=== PATIENT | male | born 1950 | race African-American/Black ===

== ENCOUNTER 2016-06-19 19:35 | Inpatient (IN) ==
[2016-06-19 21:21] LABS: Basophils % 0.4 % (0.0-0.8); Eosinophils % 0.3 % (0.00-10.9); Hematocrit 33.5 VOL% (42.0-52.0); Hemoglobin 11.4 GM/DL (14.0-18.0); Immature Granulocytes % 0.5 %; Immature Granulocytes Absolute 0.04 #; Lymphocytes # 1.7 10*3/uL (1.4-4.0); Lymphocytes % 21.8 % (21.2-54.2); Mean Corpuscular Hemoglobin 31 PG (27-34); Mean Platelet Volume 10.5 FL (9.6-12.0); Monocytes # 0.9 10*3/uL (0.11-0.8); Neutrophils # 5.1 10*3/uL (1.4-7.4); Platelet Count 299 T/CUMM (130-400); Red Blood Count 3.68 MC/CUMM (3.8-5.5); Red Cell Distribution Width 13.1 % (9.3-17.3); White Blood Count 7.9 T/CUMM (4-12)
[2016-06-19 21:33] LABS: Apearance,Urine CLOUDY (Clear); Bacteria,Urine Moderate /HPF (Few); Bilirubin,Urine Negative (Negative); Blood, Urine Large mg/dL (Negative); Glucose,Urine (UA) Negative (Negative); Ketones,Urine Negative (Negative); Mucus,Urine Occasional /LPF (Occasional); Nitrite,Urine Positive (Negative); Protein,Urine 100 MG/DL; RBC,Urine 193 /HPF (0-4); Urine Color Yellow (Yellow); Urine Specific Gravity 1.008 (1.001-1.035); Urine Urobilinogen < 2.0 EU/DL (0.2-1.0); WBC,Urine 236 /HPF (0-6)
[2016-06-19 21:42] LABS: Alanine Aminotransferase 50 U/L (16-61); Albumin 4.2 G/DL (3.4-5.0); Alkaline Phosphatase 78 U/L (45-117); Aspartate Amino Transferase 31 U/L (0-37); Blood Urea Nitrogen 22 MG/DL (7-18); Calcium 8.9 MG/DL (8.5-10.1); Glucose 107 MG/DL (74-106); Magnesium 2.6 MG/DL (1.8-2.4); Osmolality,Calculated 277.7 MOS/KG (273-304); Potassium 4.2 MMOL/L (3.5-5.1); Sodium 138 MMOL/L (136-145); Total Protein 7.4 G/DL (6.4-8.3); Troponin I Only < 0.015 NG/ML (0.00-0.045)
[2016-06-19] MEDS ORDERED: MORPHINE 2 MG/1 ML SYRINGE IV STA (22:49)
[2016-06-19] MEDS ORDERED: MORPHINE 2 MG/1 ML SYRINGE ONE (22:51)
[2016-06-20] MEDS ORDERED: cefTRIAXone 1,000 MG in SODIUM CHLORIDE 0.9% 100 ML IV STA (00:05)
[2016-06-20] MEDS ORDERED: SODIUM CHLORIDE 0.9% 100 ML IV ONE (00:12)
[2016-06-20] MEDS ORDERED: cefTRIAXone 1,000 MG VIAL ONE (00:12)
--- NOTE | 2016-06-20 00:17 | Emergency Department Note ---
I, Sarahy Johnson, am scribing for, and in the presence of, Xin Davies MD 20:38. IKeke Leanne, MD, personally performed the services described in this documentation, ascribed by Sarahy Johnson in my presence, and it is both accurate and complete . Arrival - Arrival Chief Complaint: Abdominal / Flank Pain Stated Complaint: stomach pain dizzy ED Nursing Triage Note: C/O Generalized abd pain radiating into bilateral flanks. Onset 2-3 weeks ago. Pt reports that he has been to [facility] and was diagnosed with UTI- reports taking antibiotics without any relief. Denies fever. Denies vomiting/diarrhea. +nausea. Last BM Yesterday Mode of Arrival: Ambulatory Limitations: No Limitations Source: Patient, Family Time Seen by Provider: 06/19/16 20:29 - History of Present Illness HPI Narrative: Pt is a 65 y/o male that came to the ED with c/o RUQ pain that has been constant for 2-3 months. Pt has associated sxs of pain radiating to his right flank and back, loss of appetite, weight loss, weakness, sleeping more than normal, and constipation. Pt reports his last BM was this morning due to taking a laxative last night for the constipation. Pt states eating and trying to sleep make sxs worse. Family reports pt has lost a lot of weight in the past few months. Pt states he has been to [facility] for sxs and had a CT scan. Pt reports [facility] said he had a "bad UTI that spread." Pt is in remission for prostate CA that he received seed radiation. Pt reports the radiation damaged his bladder and he now has to do self caths daily. Pt admits he does still have his gallbladder. Pt denies being a current smoker but states he did smoke a pack a day for 8 years. No other complaints/pain in ED. Onset (ago): month(s) Consistency: constant Severity: moderate Severity scale (1-10): 5 Quality: sharp Allergies/Adverse Reactions: Allergies Allergy/AdvReac Type Severity Reaction Status Date / Time No Known Allergies Allergy Verified 01/23/15 14:52 Home Medications: Home Medications Medication Instructions Recorded Confirmed Type Ferrous Sulfate [Ferrous Sulfate 325 mg PO DAILY 01/23/15 06/19/16 History Cap] Pantoprazole Tab [Protonix Tab] 40 mg PO DAILY 01/23/15 06/19/16 History Simvastatin [Zocor] 20 mg PO QPM 01/23/15 06/19/16 History Tamsulosin [Flomax] 0.4 mg PO QPM 01/23/15 06/19/16 History Zolpidem Tartrate [Ambien] 10 mg PO BEDTIME 01/23/15 06/19/16 History hydroCHLOROthiazide 12.5 mg PO DAILY 01/23/15 06/19/16 History [Hydrochlorothiazide] Albuterol Inhaler [Proventil 1 puff INH BID PRN 06/19/16 06/19/16 History Inhaler] Ascorbic Acid 1,000 mg PO BID 06/19/16 06/19/16 History Aspirin EC Tab 81 mg PO DAILY 06/19/16 06/19/16 History HYDROcodone/ACETAMIN 5-325 [[place] 1 tablet PO Q4H PRN 06/19/16 06/19/16 History 5-325] Melatonin 3 mg PO BEDTIME 06/19/16 06/19/16 History Metoprolol Succinate 50 mg PO DAILY 06/19/16 06/19/16 History Phenazopyridine HCl [Azo Urinary 97.5 mg PO DAILY PRN 06/19/16 06/19/16 History Pain Relief] Sildenafil Citrate [Viagra] 100 mg PO DAILY PRN 06/19/16 06/19/16 History Review of System - Review of System 12 point system: reviewed and no additional remarkable complaints except as stated - Review of System Constitutional: Present: weakness, weight loss, other (loss of appetite; sleeping more than normal). Absent: chills, fever Respiratory: Absent: cough Cardiovascular: Absent: chest pain Gastrointestinal: Present: abdominal pain (RUQ abdominal pain), constipation. Absent: nausea, vomiting, diarrhea Musculoskeletal: Present: back pain (abdominal pain radiates to the right flank and back). Absent: arm pain Skin: Absent: rash Neurological: Absent: headache Psychiatric: Absent: anxiety Medical,Surgical,& Family Hx - Medical History Cardio: History of: Hypertension Neurology: History of: TIA No history of: Seizures Gastrointestinal: History of: GI Problems (anemia) - Surgical History Abdominal Surgeries: Surgical HX of: Colonoscopy - Social History Smoking Status: Never smoker Frequency of Alcohol Use: None Type of Drug Use: None Exam Vital Signs: Vital Signs Temperature 97.1 F L 06/19/16 19:48 Pulse Rate 76 06/19/16 23:10 Respiratory Rate 19 06/19/16 23:10 Blood Pressure 158/73 06/19/16 23:10 O2 Sat by Pulse Oximetry 100 06/19/16 23:10 - General General appearance: alert, in no apparent distress, other (looks thin) - Head Head exam: Present: atraumatic, normocephalic - Eye Eye exam: Present: PERRL, EOMI - ENT ENT exam: Present: mucous membranes moist. Absent: mucous membranes dry - Neck Neck exam: Present: full ROM. Absent: tenderness - Chest Chest inspection: Present: symmetric chest wall rise. Absent: tenderness - Respiratory Respiratory exam: Present: normal lung sounds bilaterally. Absent: respiratory distress - Cardiovascular Cardiovascular exam: Present: regular rate, normal rhythm, normal heart sounds - Abdominal Exam Abdominal exam: Present: soft, tenderness (RUQ tenderness), normal bowel sounds - Extremities Exam Extremities exam: Present: full ROM. Absent: tenderness - Back Exam Back exam: Present: full ROM. Absent: tenderness - Neurological Exam Neurological exam: Present: alert, oriented X3, CN II-XII intact. Absent: motor sensory deficit - Psychiatric Psychiatric exam: Present: normal affect, normal mood - Skin Skin exam: Present: warm, dry Results - Labs CBC & BMP: 06/19/16 20:19 06/19/16 20:19 Lab Results: I have reviewed the patients labs Labs: Laboratory Tests 06/19/16 06/19/16 20:19 20:19 RBC 3.68 L Hgb 11.4 L Hct 33.5 L Mcc[place] # (Auto) 0.9 H Urine Color Yellow Urine Appearance Cloudy Urine pH 6.0 Ur Specific [place] 1.008 Urine Protein 100 Urine Glucose (UA) Negative Urine Ketones Negative Urine Blood Large Urine Nitrate Positive H Urine Bilirubin Negative Urine Urobilinogen < 2.0 H Urine Leukocytes Large H Urine RBC 193 Urine WBC 236 Urine WBC Clumps Moderate Urine Bacteria Moderate Urine Mucus Occasional Laboratory Tests 06/19/16 20:19 Anion Gap 16.2 H BUN 22 H Creatinine 2.90 H Glucose 107 H Magnesium 2.6 H - EKG EKG results: interpreted by ERMSilvana, WNL, sinus rhythm, normal axis, normal ST/T - Diagnostic Findings Procedure: CT Abdomen and Pelvis: report reviewed by me (Moderate bilateral hydronephrosis of unknown etiology, with ureteral jets demonstrated bilaterally. Small avascular hyperechoic foci within the liver and spleen may be hemangiomas, but are incompletely evaluated sonographically. ) Disposition Clinical Impression: Urinary obstruction, Bladder mass, Urinary tract infection, History of prostate cancer, Liver metastases Case discussed with: patient Condition: Guarded Additional Instructions: spoke with hosptialist for admission.
[2016-06-20] MEDS ORDERED: ZALEPLON 5 MG CAPSULE PO PRN (00:52)
[2016-06-20] MEDS ORDERED: ONDANSETRON 4 MG/2 ML VIAL IV PRN (00:52)
[2016-06-20] MEDS ORDERED: ALBUTEROL 2.5 MG/3 ML NEB RESP TX PRN (00:58)
[2016-06-20] MEDS ORDERED: PHENAZOPYRIDINE 95 MG TABLET PO PRN (00:58)
--- NOTE | 2016-06-20 01:04 | Hospitalist History & Physical ---
Assessment and Plan (1) Urinary obstruction Status: Acute Current Visit: Yes (2) Bladder mass Status: Acute Current Visit: Yes (3) Urinary tract infection Status: Acute Current Visit: Yes (4) History of prostate cancer Status: Acute Current Visit: Yes (5) Liver metastases Status: Acute Assessment and plan: Our plan for this patient will be admission to our service. I am going to consult urology for their input. In addition I am going to obtain imaging studies and neurological evaluations from the [facility]. I do not think any of this is new think this is old. Patient is a very poor historian and is very difficult to get in information out of him. His and daughter are not much help either. Patient does self cath 3 times daily. Current Visit: Yes History of Present Illness Chief complaint: Abdominal pain, weakness History of present illness: Mr. Figueredo is a 65 year old male with past medical history significant for prostate cancer hypertension and BPH whose been feeling poorly lately. Patient reports that he goes to the [facility] for his healthcare. He says that he has been told that his prostate cancer had resolved and that his PSA was low male. Patient is a very poor historian so I do not have a full picture about what is going on with this patient. He comes in to me reports of lower abdominal pain no appetite cannot sleep generalized weakness. He also says that he gets dizzy upon standing. He says he stays cold all the time. And he says I just do not feel good. He comes into our hospital for further evaluation. The ER physician ordered a CT scan. It displayed multiple metallic prostate seeds. There was pelvic postop changes with the ventral pelvic wall cold tissue festers. There is a poorly defined 4 cm left. He central pelvic mass continuous with the prostate cancer and urinary bladder base. They labeled it is malignant being probable. There was a 37 mm calcification at the ureter ago vesicle junction which may be an obstructing stone. They do say that neoplastic invasion cannot be excluded. There are multiple poorly defined hypodense hepatic masses of various sizes strongly suggestive of liver metastasis. These are the findings documented on segun's CT scan. In the paperwork that they brought from the [facility] which was not complete I did find a CT scan done in February that had similar findings. It made reference to 2 masses in the liver and recommended additional imaging be performed. I do not know if additional imaging was performed in the patient and his family cannot tell me. They did tell me they were told do not let anybody biopsy of the masses in the liver. They deny that they have been told that he has a current cancer. I was consulted to admit the patient to the emergency room. Home Medications Medication Instructions Recorded Confirmed Type Ferrous Sulfate [Ferrous Sulfate 325 mg PO DAILY 01/23/15 06/19/16 History Cap] Pantoprazole Tab [Protonix Tab] 40 mg PO DAILY 01/23/15 06/19/16 History Simvastatin [Zocor] 20 mg PO QPM 01/23/15 06/19/16 History Tamsulosin [Flomax] 0.4 mg PO QPM 01/23/15 06/19/16 History Zolpidem Tartrate [Ambien] 10 mg PO BEDTIME 01/23/15 06/19/16 History hydroCHLOROthiazide 12.5 mg PO DAILY 01/23/15 06/19/16 History [Hydrochlorothiazide] Albuterol Inhaler [Proventil 1 puff INH BID PRN 06/19/16 06/19/16 History Inhaler] Ascorbic Acid 1,000 mg PO BID 06/19/16 06/19/16 History Aspirin EC Tab 81 mg PO DAILY 06/19/16 06/19/16 History HYDROcodone/ACETAMIN 5-325 [[place] 1 tablet PO Q4H PRN 06/19/16 06/19/16 History 5-325] Melatonin 3 mg PO BEDTIME 06/19/16 06/19/16 History Metoprolol Succinate 50 mg PO DAILY 06/19/16 06/19/16 History Phenazopyridine HCl [Azo Urinary 97.5 mg PO DAILY PRN 06/19/16 06/19/16 History Pain Relief] Sildenafil Citrate [Viagra] 100 mg PO DAILY PRN 06/19/16 06/19/16 History Allergies Allergy/AdvReac Type Severity Reaction Status Date / Time No Known Allergies Allergy Verified 01/23/15 14:52 Medical,Surgical,& Family Hx - Medical History Cardio: History of: Hypertension Neurology: History of: TIA No history of: Seizures Gastrointestinal: History of: GI Problems (anemia) - Surgical History Abdominal Surgeries: Surgical HX of: Colonoscopy Reproductive Surgeries: Surgical HX of;: Prostate Surgery - Family History Family History: Reports;: Family Cancer - Social History Smoking Status: Never smoker Frequency of Alcohol Use: None Type of Drug Use: None 12 point system: reviewed and no additional remarkable complaints except as stated Exam - Constitutional General appearance: normal weight - Head Head exam: Present: normal inspection - Eye Eye exam: Present: EOMI Pupils: Present: DARIAN - ENT ENT exam: Present: normal exam - Neck Neck exam: Present: normal inspection - Respiratory Respiratory exam: Present: clear to auscultation bilaterally - Cardiovascular Cardiovascular exam: Present: regular rate and rhythm - GI/Abdominal GI/Abdominal exam: Present: normal bowel sounds - Extremities Exam Extremities exam: Present: normal inspection - Back Exam Back exam: Present: normal inspection - Neurological Exam Neurological exam: Present: alert - Psychiatric Psychiatric exam: Present: flat affect - Skin Skin exam: Present: normal color Results - Labs CBC & BMP: 06/19/16 20:19 06/19/16 20:19
[2016-06-20] MEDS: SODIUM CHLORIDE 0.9% 1,000 ML IV SCH ×3 (01:57→21:32)
--- NOTE | 2016-06-20 06:21 | Ultrasound Report ---
US abdomen Indication: Generalized abdominal pain Comparison: None Technique: Multiple longitudinal and transverse real-time sonographic images of the abdomen are obtained. Findings: The liver measures 17.5 cm and demonstrates indeterminate hyperechoic lesion measuring up to 2.1 cm. The sonographic Sotelo's sign is negative. The gallbladder is normal in size with no abnormal intraluminal echoes, wall thickening, or pericholecystic fluid. The common bile duct measures 0.28 cm in diameter. There is no evidence of intrahepatic ductal dilatation. The right and left kidneys measure 10.9 cm and 10.0 cm, respectively. Moderate bilateral hydronephrosis. The spleen measures 9.5 cm and demonstrates a 2.3 cm hyperechoic lesion. Evaluation of the pancreas limited secondary to bowel gas. Aorta obscured by bowel gas. IVC appears patent. There is no ascites. Scanning through the pelvis reveals incompletely distended urinary bladder IMPRESSION: Moderate bilateral hydronephrosis. Indeterminate hyperechoic liver and spleen lesions. Preliminary report issued by virtual radiology. PROCEDURE INTERPRETED AT [facility] DEPARTMENT OF RADIOLOGY Final Report Signed by: Dr Kevin Angel
--- NOTE | 2016-06-20 07:14 | CT Report ---
CT abdomen pelvis wo con Indication: Abdominal pain/pelvic pain Comparison: None Technique: Multiple axial tomographic images of the abdomen and pelvis were obtained without the use of intravenous contrast. Findings: Elevation of the left hemidiaphragm. Mild dependent change/scarring of the lungs. Granulomatous calcification within the right middle lobe. Innumerable hypodense lesions throughout the liver concerning for metastasis. The largest is within the inferolateral right lobe which measures up to 5.6 cm. Gallbladder grossly unremarkable. Pancreas and spleen grossly unremarkable. Bilateral adrenal glands grossly unremarkable. Moderate bilateral hydronephrosis. Atherosclerotic calcifications versus less likely nonobstructing bilateral renal calculi. Brachytherapy beads are demonstrated within the prostate. There is an irregular mass with associated coarse calcification projecting from the superior aspect of the prostate with loss of fat plane between this mass and the posterior urinary bladder wall. This mass measures up to 6 cm. There is some mild concentric urinary bladder wall thickening suggesting chronic outlet obstruction. No evidence of gastrointestinal obstruction or acute appendicitis. Heavy atelectatic calcifications. Prior lower abdominal/inguinal hernia repair suggested. Degenerative change of the spine, greatest at L5-S1. IMPRESSION: Limited exam secondary to lack of intravenous or oral contrast. Moderate bilateral hydronephrosis. Atherosclerotic calcifications versus less likely nonobstructing bilateral renal calculi. Brachytherapy beads are demonstrated within the prostate. There is an irregular mass with associated coarse calcification projecting from the superior aspect of the prostate with loss of fat plane between this mass and the posterior urinary bladder wall concerning for malignancy. This mass measures up to 6 cm. There is some mild concentric urinary bladder wall thickening suggesting chronic outlet obstruction. There are innumerable hepatic lesions concerning for metastasis. Detailed findings as above. Preliminary report issued by virtual radiology. PROCEDURE INTERPRETED AT [facility] DEPARTMENT OF RADIOLOGY Final Report Signed by: Dr Kevin Angel
[2016-06-20] MEDS: METOPROLOL SUCCINATE XL 100 MG TABLET PO SCH (08:38)
[2016-06-20] MEDS: ASPIRIN EC 81 MG TABLET PO SCH (08:38)
[2016-06-20] MEDS: PANTOPRAZOLE 40 MG TABLET PO SCH (08:38)
[2016-06-20] MEDS: FERROUS SULFATE 325 MG TABLET PO SCH (08:38)
[2016-06-20] MEDS: hydroCHLOROthiazide 12.5 MG CAPSULE PO SCH (08:38)
[2016-06-20] MEDS: ASCORBIC ACID 500 MG TABLET PO SCH ×2 (08:38→21:27)
[2016-06-20 08:55] LABS: Basophils % 0.4 % (0.0-0.8); Eosinophils % 0.5 % (0.00-10.9); Hematocrit 31.6 VOL% (42.0-52.0); Hemoglobin 10.4 GM/DL (14.0-18.0); Immature Granulocytes % 0.5 %; Immature Granulocytes Absolute 0.03 #; Lymphocytes # 1.2 10*3/uL (1.4-4.0); Lymphocytes % 21.2 % (21.2-54.2); Mean Corpuscular HGB Conc 32.9 GM/DL (32-36); Mean Corpuscular Hemoglobin 31 PG (27-34); Mean Corpuscular Volume 92.9 FL (87-102); Mean Platelet Volume 10.6 FL (9.6-12.0); Monocytes # 0.7 10*3/uL (0.11-0.8); Monocytes % 11.9 % (1.7-12.7); Neutrophils # 3.7 10*3/uL (1.4-7.4); Neutrophils % 65.5 % (38.7-73.9); Platelet Count 282 T/CUMM (130-400); Red Cell Distribution Width 13.2 % (9.3-17.3); White Blood Count 5.7 T/CUMM (4-12)
--- NOTE | 2016-06-20 09:04 | EKG Report ---
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
[2016-06-20 09:26] LABS: Albumin 3.8 G/DL (3.4-5.0); Bilirubin,Total 0.6 MG/DL (0.2-1.0); Calcium 8.8 MG/DL (8.5-10.1); Osmolality,Calculated 283.4 MOS/KG (273-304); Potassium 3.7 MMOL/L (3.5-5.1); Total Protein 6.3 G/DL (6.4-8.3)
--- NOTE | 2016-06-20 10:51 | Hospitalist Progress Note ---
Assessment and Plan (1) Urinary obstruction Status: Acute Assessment and plan: Patient does seem to have a ureterovesical junction obstruction on the right side. There does seem to be accompanying the hydronephrosis. Urology is on the case at this point. Concerned the patient does have urinary tract infection as described below. Current Visit: Yes (2) Bladder mass Status: Acute Assessment and plan: This could be extension of his prostate cancer could be primary in the bladder. Cystoscopy is planned for tomorrow. Do not see a PSA drawn I will send one on the serum that is in the low. Current Visit: Yes (3) Urinary tract infection Status: Acute Assessment and plan: Description for microbiology that this is a gram-negative antoine. Identity and antibiogram is pending at this point patient is on ceftriaxone I would encourage the raising that at 2 g daily. He does have acute kidney injury could be secondary to the obstructive pathology. Do believe that he can withstand a dose of 250 mg Levaquin once a day IV. Patient does not look bacteremic to worry about this dosing of the quinolone. Current Visit: Yes (4) History of prostate cancer Status: Acute Assessment and plan: Check PSA Current Visit: Yes Hospitalist: Subjective Interval history: Patient has been seen interviewed and examined and chart has been reviewed. Admitted by my colleagues in the last 24 hours with complaints of weakness lower abdominal pain. Gentleman history of prostate cancer. Reportedly he does have a bleeding lesion in the urinary bladder that is contiguous with prostate there is also suggestion of an obstructing lesion or stone at the ureterovesical junction. CT scan suggests right-sided hydronephrosis. Patient is already been consulted to urology and Dr. Thurston will be allowed to see the patient today. To me he says the pain in those 2 days not as bad as it was before. He describes a feeling of like he is passing urine but there is nothing going into the commode. On urinalysis he does have large leukocyte esterase positive nitrates I do not have a urine microscopy. Suggestive of urinary tract infection. White count is on his 5700 today was 7900 yesterday does have a chronic anemia does have elevated creatinine of 2.9 yesterday 2.8 today. Urine culture was inoculated yesterday at this reporting gram-negative rods on today's report antibiogram still pending. Exam - Constitutional Vitals: Period Temp Pulse Resp BP Sys/Marte Pulse Ox Last 24 Hr 96.5 F-99.1 F 70-83 15-20 121-158/59-86 92-100 General appearance: normal weight - Head Head exam: Present: normocephalic, atraumatic - Eye Eye exam: Present: EOMI, other (Anicteric sclera no conjunctival petechiae) Pupils: Present: DARIAN - ENT ENT exam: Present: normal exam - Neck Neck exam: Present: normal inspection, other (Supple neck midline trachea no adenopathy) - Respiratory Respiratory exam: Present: clear to auscultation bilaterally, other (No wheezing no rales) - Cardiovascular Cardiovascular exam: Present: regular rate and rhythm - GI/Abdominal GI/Abdominal exam: Present: normal bowel sounds, soft - Extremities Exam Extremities exam: Present: full ROM - Neurological Exam Neurological exam: Present: alert, oriented X3, CN II-XII intact - Psychiatric Psychiatric exam: Present: normal affect, normal mood - Skin Skin exam: Present: normal color, warm, dry Results - Labs CBC & BMP: 06/20/16 08:28 06/20/16 08:28 Lab Results: I have reviewed the past 24 hour labs (Urine cultures gram- negative rods antibiogram is pending)
--- NOTE | 2016-06-20 12:47 | Urology Consultation ---
History of Present Illness - Data of Consult Consult date: 06/20/16 - Consult Narrative History of present illness: Mr. Figueredo is a 65 year old male This 65-year-old black male is seen in consultation because of bilateral hydronephrosis seen on CT scan. Patient has a history of prostate cancer and is been followed by the [place] in [place] treated with radioactive seed implant. The patient has been in urinary retention for the last 2-3 months and is been started on intermittent self-catheterization which she has been doing 4 times a day. He has slight elevation in his creatinine and hematuria and pyuria on urinalysis. CT scan shows a irregular area at the bladder base in the at the prostate gland and liver lesions suggestive of metastatic disease the patient says that [facility] and [facility] are aware of the bilateral hydronephrosis although he is a poor historian he has an appointment tear the end of this month. I think his urinary tract infection is due to the intermittent catheterization. I am going to check a PSA and get a GI consultation for possible liver metastases and let [facility] since they are apparently aware of this problem CC: Isaac Oviedo MD - Home Medications and Allergies Home Medications: Home Medications Medication Instructions Recorded Confirmed Type Ferrous Sulfate [Ferrous Sulfate 325 mg PO DAILY 01/23/15 06/20/16 History Cap] Pantoprazole Tab [Protonix Tab] 40 mg PO DAILY 01/23/15 06/20/16 History Simvastatin [Zocor] 20 mg PO QPM 01/23/15 06/20/16 History Tamsulosin [Flomax] 0.4 mg PO QPM 01/23/15 06/20/16 History Zolpidem Tartrate [Ambien] 10 mg PO BEDTIME 01/23/15 06/20/16 History hydroCHLOROthiazide 12.5 mg PO DAILY 01/23/15 06/20/16 History [Hydrochlorothiazide] Albuterol Inhaler [Proventil 1 puff INH BID PRN 06/19/16 06/20/16 History Inhaler] Ascorbic Acid 1,000 mg PO BID 06/19/16 06/20/16 History Aspirin EC Tab 81 mg PO DAILY 06/19/16 06/20/16 History HYDROcodone/ACETAMIN 5-325 [[place] 1 tablet PO Q4H PRN 06/19/16 06/20/16 History 5-325] Melatonin 3 mg PO BEDTIME 06/19/16 06/20/16 History Metoprolol Succinate 50 mg PO DAILY 06/19/16 06/20/16 History Phenazopyridine HCl [Azo Urinary 97.5 mg PO DAILY PRN 06/19/16 06/20/16 History Pain Relief] Sildenafil Citrate [Viagra] 100 mg PO DAILY PRN 06/19/16 06/20/16 History Allergies/Adverse Reactions: Allergies Allergy/AdvReac Type Severity Reaction Status Date / Time No Known Allergies Allergy Verified 01/23/15 14:52 Exam - Constitutional Vitals: Period Temp Pulse Resp BP Sys/Marte Pulse Ox Last 24 Hr 96.5 F-99.1 F 70-83 15-20 121-158/59-86 92-100 Results - Labs CBC & BMP: 06/20/16 08:28 06/20/16 08:28
[2016-06-20] MEDS: TAMSULOSIN 0.4 MG CAPSULE PO SCH (18:12)
[2016-06-20] MEDS: SIMVASTATIN 20 MG TABLET PO SCH (18:12)
[2016-06-20] MEDS: MELATONIN 3 MG TABLET PO SCH (21:26)
[2016-06-20] MEDS: cefTRIAXone 1,000 MG in SODIUM CHLORIDE 0.9% 100 ML IV SCH (21:28)
--- NOTE | 2016-06-21 07:59 | Urology Progress Note ---
Urology - PN: Subj Interval history: The patient's PSA value is pending. I do not plan any further evaluation on the hydronephrosis as this [facility] He has an appointment there the of this month. I will give him a copy of the CT scan so they will have an updated CT scan report. The patient also today says that he has a letter from the [facility] stating he should not have a liver biopsy so apparently the [facility] is aware of the liver lesions also. Exam - Constitutional Vitals: Period Temp Pulse Resp BP Sys/Marte Pulse Ox Last 24 Hr 97.0 F-98.4 F 67-97 18-20 118-132/58-63 93-98 Results - Labs CBC & BMP: 06/20/16 08:28 06/20/16 08:28
[2016-06-21] MEDS: ASCORBIC ACID 500 MG TABLET PO SCH ×2 (08:07→20:45)
[2016-06-21] MEDS: PANTOPRAZOLE 40 MG TABLET PO SCH (08:07)
[2016-06-21] MEDS: hydroCHLOROthiazide 12.5 MG CAPSULE PO SCH (08:07)
[2016-06-21] MEDS: FERROUS SULFATE 325 MG TABLET PO SCH (08:07)
[2016-06-21] MEDS: ASPIRIN EC 81 MG TABLET PO SCH (08:07)
[2016-06-21] MEDS: SODIUM CHLORIDE 0.9% 1,000 ML IV SCH ×2 (08:07→18:34)
[2016-06-21] MEDS: METOPROLOL SUCCINATE XL 100 MG TABLET PO SCH (08:08)
--- NOTE | 2016-06-21 09:33 | Hospitalist Progress Note ---
Hospitalist: Subjective Interval history: Patient reports that he is appetite has improved. He denies any nausea or vomiting. He does report that he is still doing in and out caths and had a slight amount of blood on the last cath. He does note right upper quadrant pain with pressing. Patient reports is been a couple of days since his last bowel movement and requests a stool softener. Low-grade temp of 99.1 overnight. No chest pain or shortness of breath. Pt reports 4 months ago he had urodynamic studies and he showed [facility] were consistent with [facility]. Exam - Constitutional Vitals: Period Temp Pulse Resp BP Sys/Marte Pulse Ox Last 24 Hr 97.0 F-98.4 F 67-97 18-20 118-132/58-63 93-98 Exam: GEN: A and O x 3 HEENT: Anicteric sclera, MMM CV: RRR no M LUNGS: CTAB nonlabored ABD: Soft, RUQ TTP without rebound + mild voluntary guarding with hepatomegaly with 2 finger breath spans below the right costophrenic angle. EXT: Warm no c/c/e Results - Labs CBC & BMP: 06/20/16 08:28 06/20/16 08:28 - Impressions (1) Urinary obstruction/ neurogenic bladder with moderate bilateral hydronephrosis Status: Acute Assessment and plan: Patient does seem to have a ureterovesical junction obstruction and has moderate bilateral hydronephrosis noted on CT abd/pelvis. - Urology is following. Current Visit: Yes (2) Bladder mass (known) Status: Acute Assessment and plan: Reportedly, pt reports this has been biopsied recently and it has been normal. He states he has this biopsied ever so often by Urology. R/O extension of his prostate cancer or could be primary in the bladder. Cystoscopy is planned for when Dr. Sheets returns ?06/22. PSA pending Current Visit: Yes (3) Urinary tract infection/ cystitis due to Citrobacter (complicated) Status: Acute Assessment and plan: Cont Ceftriaxone. Can change to cipro or levaquin at discharge renally dosed. Current Visit: Yes (4) History of prostate cancer Status: Chronic Assessment and plan: F/U PSA Current Visit: Yes (5) Acute renal failure on CKD stage 3 likely due to obstruction + possible pre- renal causes - hold HCTZ. RFP in am. Cont gentle IVF. DVT prophylaxis-early ambulation. Can do SCDs since saw small amount of hematuria earlier if prolonged hospitalization expected. D/W pt, family, and nurse and all questions answered. Dispo: pending urology recommendations.
--- NOTE | 2016-06-21 14:31 | Gastrointestinal Consult Note ---
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 We should be able to distinguish between these 2 potential lesions of the liver with a tagged red blood cell scan which showed showing accumulation of RBC contrast in hemangiomas if these are identified. I suspect this patient may have a discrete lesion or potentially several but that the majority of the "innumerable lesions" are likely metastatic cancer of some type. I think will be helpful to have a biopsy demonstrating that they were consistent with prostate cancer, as opposed to a secondary metastasis from another site versus primary hepatocellular carcinoma. If the tagged red blood cell scan is negative for evidence of hemangiomas with probably be safe in obtaining a liver biopsy of 1 of the larger lesions to make the diagnosis of metastatic cancer. 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 The colon is essentially ruled out as a site of potential cancer at this point. Current Visit: Yes (3) History of esophageal stricture Status: Acute Assessment and plan: The patient was having some nausea and vomiting earlier secondary to abdominal pain caused by the hydronephrosis but now feels great deal better. Acid blockade would likely be helpful over time. His nausea continues to get better after catheterization. No need for dilation in the short-term as he is really not getting food stuck at this point. EGD was last done approximately [address] Meng. Suggest daily Protonix. Current Visit: Yes (4) Abnormal weight loss Status: Acute Assessment and plan: Continue to monitor this. This is likely secondary to his metastatic prostate cancer with underlying disability, and multiple medical problems Current Visit: Yes History of Present Illness Chief complaint: Liver lesions: hemangiomas versus metastatic? History of present illness: Mr. Figueredo is a 65 year old male who has a history of a CT scan on 06/20/16 which demonstrates "innumerable hypodense lesions" throughout the liver concerning for metastases", but he also [facility] in both his liver and spleen. The patient has a known history of prostate cancer with a large mass of 6 cm in the prostate that is producing gross evidence of urinary retention and hydronephrosis bilaterally. The patient has radium seeds implanted in the prostate and has been undergoing intermittent catheterization. He has bilateral flank pain as well as bladder pain in the front and apparently has urinary tract infection in addition. He was not able to get contrast with a CT scan due to elevations in his creatinine unfortunately. I had previously seen this patient in the office in follow-up from a previous colonoscopy done by Dr. Meng back on 08/09/10 at which time a large tubulovillous polyp was removed. He had some anemia and was being worked up by Negin Degroot on the date I saw him 01/12/15. We did perform a follow-up colonoscopy on 01/28/15 which demonstrated hyperplastic polyp only in the descending colon. There was no gross evidence of colon cancer. The patient 's EGD have been done about 5 years ago demonstrating hiatal hernia lower esophageal sphincter that required dilation to 52 [place] for dysphagia but no gross evidence of stomach cancer. There is some concern that the patient may have prostate cancer metastatic to the liver versus these hemangiomas. We should be able to distinguish this fairly easily with tagged red blood cell scan , considering 1 of these lesions since almost 6 cm in size. Home Medications Medication Instructions Recorded Confirmed Type Ferrous Sulfate [Ferrous Sulfate 325 mg PO DAILY 01/23/15 06/20/16 History Cap] Pantoprazole Tab [Protonix Tab] 40 mg PO DAILY 01/23/15 06/20/16 History Simvastatin [Zocor] 20 mg PO QPM 01/23/15 06/20/16 History Tamsulosin [Flomax] 0.4 mg PO QPM 01/23/15 06/20/16 History Zolpidem Tartrate [Ambien] 10 mg PO BEDTIME 01/23/15 06/20/16 History hydroCHLOROthiazide 12.5 mg PO DAILY 01/23/15 06/20/16 History [Hydrochlorothiazide] Albuterol Inhaler [Proventil 1 puff INH BID PRN 06/19/16 06/20/16 History Inhaler] Ascorbic Acid 1,000 mg PO BID 06/19/16 06/20/16 History Aspirin EC Tab 81 mg PO DAILY 06/19/16 06/20/16 History HYDROcodone/ACETAMIN 5-325 [[place] 1 tablet PO Q4H PRN 06/19/16 06/20/16 History 5-325] Melatonin 3 mg PO BEDTIME 06/19/16 06/20/16 History Metoprolol Succinate 50 mg PO DAILY 06/19/16 06/20/16 History Phenazopyridine HCl [Azo Urinary 97.5 mg PO DAILY PRN 06/19/16 06/20/16 History Pain Relief] Sildenafil Citrate [Viagra] 100 mg PO DAILY PRN 06/19/16 06/20/16 History Allergies Allergy/AdvReac Type Severity Reaction Status Date / Time No Known Allergies Allergy Verified 01/23/15 14:52 Medical,Surgical,& Family Hx - Medical History Cardio: History of: Hypertension Neurology: History of: TIA No history of: Seizures Renal: History of: Renal Failure Genitourinary: History of: Recurring Urinary Tract Infections, Problems ( self catheterizes due to inability to void related to prostate CA) Gastrointestinal: History of: GI Problems (anemia) Other: History of: Cancer (prostate) - Surgical History Abdominal Surgeries: Surgical HX of: Colonoscopy Reproductive Surgeries: Surgical HX of;: Prostate Surgery - Family History Family History: Reports;: Family Cancer - Social History Smoking Status: Never smoker Frequency of Alcohol Use: None Type of Drug Use: None Review of systems: Constitutional: Denies fever, chills, but positive for nausea, and vomiting Eyes: Denies dry eyes, and scleral icterus HENT: Occasional headaches Cardiovascular: Denies acute chest pain and claudication Respiratory: Denies shortness of breath, wheezing, and difficulty breathing, denies cough Gastrointestinal: As noted in the HPI Genitourinary: Denies dysuria and hematuria Neurologic: Denies vision loss, and loss of sensation Musculoskeletal: He does have some joint swelling, joint stiffness, and muscular weakness Psychiatric: Mild depression but no bharti symptoms Heme-Lymph: Denies easy bruising, lymph node enlargement or tenderness, night sweats, excessive bleeding Allergies-immunologic: Denies pruritus and rhinorrhea Exam - Constitutional Vitals: Period Temp Pulse Resp BP Sys/Marte Pulse Ox Last 24 Hr 97.0 F-99.1 F 68-97 18-20 118-159/58-67 93-97 Exam: Constitutional: Well-developed, well-nourished, alert, and in no acute distress Head and face: Head: Normocephalic atraumatic Eyes: Conjunctiva without injection, no gross scleral icterus, pupils equal and round bilaterally Ears: Intact to conversation in both ears Nose: External appearance is normal, nares patent Mouth: Oral mucous membranes moist without erythema dentition noted to be without erosion Neck: Normal appearance, no masses or tenderness, trachea midline Thyroid: Gland midline and appropriate size for age Respiratory: Normal respiratory effort, clear to auscultation without wheezes, rhonchi or rales Cardiovascular: Regular rate and rhythm, normal S1, S2, the exam is without rubs, murmurs or gallops. Gastrointestinal: Nontender to palpation, normal active bowel sounds, tone normal without rigidity or guarding, no masses present, no hepatomegaly, no spleen tip felt. No rectal exam obtained. Lymphatic: Neck without adenopathy, axilla without lymphadenopathy present Musculoskeletal: Right and left lower extremities without evidence of edema Skin and subcutaneous tissue: No rashes or ulcerations noted, normal skin turgor, digits and nails without clubbing/cyanosis/deformities. Neurologic: The patient is grossly oriented to person place and time, cranial nerves show tongue movements are normal with normal tongue extrusion midline, light touch sensation is intact. Psychiatric: No hallucinations or delusions are present, does not appear depressed Results - Labs CBC & BMP: 06/20/16 08:28 06/20/16 08:28
[2016-06-21 15:31] LABS: Apearance,Urine CLEAR (Clear); Bacteria,Urine Occasional /HPF (Few); Bilirubin,Urine Negative (Negative); Blood, Urine Small mg/dL (Negative); Glucose,Urine (UA) Negative (Negative); Ketones,Urine Negative (Negative); Mucus,Urine Occasional /LPF (Occasional); Nitrite,Urine Negative (Negative); Protein,Urine Negative; RBC,Urine 11 /HPF (0-4); Squamous Epithelial Cell,Urine Occasional /HPF (0-10); Urine Color Straw (Yellow); Urine Specific Gravity 1.005 (1.001-1.035); Urine Urobilinogen < 2.0 EU/DL (0.2-1.0); WBC,Urine 25 /HPF (0-6)
[2016-06-21] MEDS: SIMVASTATIN 20 MG TABLET PO SCH (18:34)
[2016-06-21] MEDS: TAMSULOSIN 0.4 MG CAPSULE PO SCH (18:34)
[2016-06-21] MEDS: MELATONIN 3 MG TABLET PO SCH (20:45)
[2016-06-21] MEDS: cefTRIAXone 1,000 MG in SODIUM CHLORIDE 0.9% 100 ML IV SCH (20:50)
--- NOTE | 2016-06-21 21:05 | Nuclear Medicine Report ---
Referring Physician: Migue Sotelo Exam: NM hemangioma scan Date: June 21, 2016 Reason: Patient reports history of multiple hepatic hemangiomas, liver lesions on noncontrast CT, history of prostate cancer Comparison: CT abdomen and pelvis without contrast June 19, 2016 Technique: The patient was administered 25 millicuries of technetium 99m as well as pyrophosphate IV for RBC tagging. Dynamic images were initially acquired as well as delayed images over 60 minutes. Findings: There are several radiolucent areas at the liver in this patient with multiple hepatic lesions. There is no convincing evidence that these lesions represent hemangiomas. Other hepatic lesions such as a neoplastic process must be considered. Correlation with MRI may be helpful. Physiologic radiotracer activity is seen elsewhere. Note is made of probable free technetium excreted by the stomach. Impression: The patient has known multiple hepatic lesions. They are radiolucent on the 60 minute images, and there is no convincing evidence that these lesions represent hemangiomas. Other hepatic lesions such as a neoplastic process must be considered. Correlation MRI may be helpful. PROCEDURE INTERPRETED AT [facility] DEPARTMENT OF RADIOLOGY Final Report Signed by: Dr. Jessica Hernandez
[2016-06-22] MEDS: SODIUM CHLORIDE 0.9% 1,000 ML IV SCH ×2 (04:34→16:40)
--- NOTE | 2016-06-22 08:03 | Urology Progress Note ---
Urology - PN: Subj Interval history: The patient's PSA is still not back from the reorder that today. If the liver lesion liver lesions represent metastatic prostate cancer this should be elevated Exam - Constitutional Vitals: Period Temp Pulse Resp BP Sys/Marte Pulse Ox Last 24 Hr 97.8 F-99.2 F 67-86 16-20 129-166/61-78 96-98 Results - Labs CBC & BMP: 06/20/16 08:28 06/20/16 08:28
--- NOTE | 2016-06-22 08:14 | Gastrointestinal Progress Note ---
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 We should be able to distinguish between these 2 potential lesions of the liver with a tagged red blood cell scan which showed showing accumulation of RBC contrast in hemangiomas if these are identified. I suspect this patient may have a discrete lesion or potentially several but that the majority of the "innumerable lesions" are likely metastatic cancer of some type. I think will be helpful to have a biopsy demonstrating that they were consistent with prostate cancer, as opposed to a secondary metastasis from another site versus primary hepatocellular carcinoma. If the tagged red blood cell scan is negative for evidence of hemangiomas with probably be safe in obtaining a liver biopsy of 1 of the larger lesions to make the diagnosis of metastatic cancer. 06/22/16--the patient did have a hemangioma study done yesterday which showed no convincing evidence of hemangiomas in the liver. CT scan demonstrated numerous hypoechoic lesions and so possibly random biopsy may show if there was cancer in the liver however I do not believe this will be the case. Patient's liver function tests are normal and if there was diffuse involvement of the liver the alkaline phosphatase and bilirubin likely would be higher. As well as the transaminases. These were all normal. The echotexture may be increased for other reasons such as fatty infiltration. We will try and obtain a fine-needle biopsy of the largest lesion which is 2.3 cm in size through interventional radiology. This could be done with either CT scan or ultrasound. 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 The colon is essentially ruled out as a site of potential cancer at this point. 06/22/16--repeat colonoscopy in 5 years from last i.e. January 2020, should the patient be well enough to undergo this procedure. Current Visit: Yes (3) History of esophageal stricture Status: Acute Assessment and plan: The patient was having some nausea and vomiting earlier secondary to abdominal pain caused by the hydronephrosis but now feels great deal better. Acid blockade would likely be helpful over time. His nausea continues to get better after catheterization. No need for dilation in the short-term as he is really not getting food stuck at this point. EGD was last done approximately [address] Meng. Suggest daily Protonix. 06/22/16--No further upper endoscopy desired. The patient is not having any dysphagia at this time and does not feel any acid reflux. Continue daily Protonix. Current Visit: Yes (4) Abnormal weight loss Status: Acute Assessment and plan: Continue to monitor this. This is likely secondary to his metastatic prostate cancer with underlying disability, and multiple medical problems. 06/22/16--Continue to monitor the weight is a patient is eating better now that his bladder is emptying better. Current Visit: Yes Gastroenterology - PN: Subj Interval history: The patient could not tolerate the Cook catheter last night and had to have this removed sometime around midnight. This was due to the pain. The hemangioma study done yesterday does not show any convincing evidence of hemangiomas in the liver, we will go ahead and arrange for liver biopsy of a 2.3 cm lesion with fine-needle to look for prostate cancer versus other metastasis versus cause of this lesion. Exam (Progress Note) - Constitutional Vitals: Period Temp Pulse Resp BP Sys/Marte Pulse Ox Last 24 Hr 97.8 F-99.2 F 67-86 16-20 129-166/61-78 96-98 General appearance: normal weight - Respiratory Respiratory exam: Present: clear to auscultation bilaterally - GI/Abdominal GI/Abdominal exam: Present: normal bowel sounds, distended, tenderness (In the suprapubic periumbilical region), soft. Absent: guarding, rebound - Extremities Exam Extremities exam: Absent: edema - Neurological Exam Neurological exam: Present: alert, oriented X3 - Psychiatric Psychiatric exam: Present: normal affect, normal mood - Skin Skin exam: Present: warm Results - Labs CBC & BMP: 06/20/16 08:28 06/20/16 08:28
[2016-06-22] MEDS: ASPIRIN EC 81 MG TABLET PO SCH (09:18)
[2016-06-22] MEDS: METOPROLOL SUCCINATE XL 100 MG TABLET PO SCH (09:38)
[2016-06-22] MEDS: ASCORBIC ACID 500 MG TABLET PO SCH ×2 (09:38→20:51)
[2016-06-22] MEDS: FERROUS SULFATE 325 MG TABLET PO SCH (09:38)
[2016-06-22 09:55] LABS: INR 1.1; PT Patient Result 11.7 SECS
[2016-06-22] MEDS ORDERED: DIAZEPAM 5 MG TABLET PO ONE ×2 (11:37)
--- NOTE | 2016-06-22 11:40 | IR History and Physical Update ---
IR Pre-Procedure - History and Physical H&P was reviewed, the patient examined and there: are no changes in the patients condition since last H&P was completed. Reason for procedure:: 65-year-old male with multiple liver masses, likely prostate cancer. Biopsy necessary. - Dictation Physical: refer to H&P completed by admitting physician - Physical Exam Vital Signs: Last Vital Signs Temp 99.1 F 06/22/16 09:40 Pulse 80 06/22/16 09:40 Resp 16 06/22/16 09:40 BP 137/66 06/22/16 09:40 Pulse Ox 98 06/22/16 09:40 Mental Status: alert and oriented - Sedation IR anesthesia plan for sedation: none ASA Class: II - Risks Risks: Procedures explained. Risks discussed include, but not limited to, the following:[Pain, bleeding, infection] All questions answered. The following alternatives were discussed:[Observation] Risks and benefits discussed with: patient Consent obtained from: patient Assessment and Plan - Time spent with patient Time spent with patient: Less than 30 minutes (1) Liver metastases Status: Acute Assessment and plan: Assessment: Multiple liver masses, unknown etiology. Plan: Percutaneous ultrasound-guided biopsy liver mass. Current Visit: Yes
[2016-06-22] MEDS: SODIUM CHLORIDE 0.45% 1,000 ML IV SCH (13:06)
--- NOTE | 2016-06-22 13:49 | Post Interventional Procedure ---
Pre-op diagnosis: Liver masses Post-op diagnosis: same Procedure: US guided biopsy of liver mass Radiologist: Keenan Ching Anesthesia: local Specimens: other (3 x 18 ga cores) Estimated blood loss: none Complications: none Condition: stable Assessment and Plan - Time spent with patient Time spent with patient: Less than 30 minutes (1) Liver metastases Status: Acute Assessment and plan: Assessment: Multiple liver masses, unknown etiology. Plan: Percutaneous ultrasound-guided biopsy liver mass. Current Visit: Yes
--- NOTE | 2016-06-22 15:07 | Ultrasound Report ---
US biopsy liver core Indication: Liver masses. ULTRASOUND-GUIDED LIVER BIOPSY, MASS Description: A formal timeout was performed. Maximum sterile barrier technique was used. Liver was evaluated with ultrasound. Right upper quadrant was prepped and draped in sterile fashion. Lidocaine was administered. Under sonographic guidance, a 17-gauge coaxial biopsy needle was advanced into the region of interest. A captured sonographic image documents needle position. Through the needle, multiple 18-gauge core biopsies were obtained. Needle was removed. Final ultrasound images showed no evidence of hematoma. Patient tolerated the procedure well. Specimen: 3 x 18 gauge core samples right liver lobe mass. Impression: Successful liver biopsy. PROCEDURE INTERPRETED AT [facility] DEPARTMENT OF RADIOLOGY Final Report Signed by: Keenan Ching M.D.
--- NOTE | 2016-06-22 15:23 | Hospitalist Progress Note ---
Hospitalist: Subjective Interval history: Pt reports appetite improved. Still no BM just small karena. No cp or SOB. No nausea or vomiting. Tolerated liver bx ok. No fever. Exam - Constitutional Vitals: Period Temp Pulse Resp BP Sys/Marte Pulse Ox Last 24 Hr 97.8 F-99.2 F 67-86 16-22 129-166/61-85 95-98 Exam: GEN: A and O x 3 HEENT: Anicteric sclera, MMM CV: RRR no M LUNGS: CTAB nonlabored ABD: Soft, nontender with hepatomegaly with 2 finger breath spans below the right costophrenic angle. EXT: Warm no c/c/e Results - Labs CBC & BMP: 06/20/16 08:28 06/20/16 08:28 - Impressions (1) Urinary obstruction/ neurogenic bladder with moderate bilateral hydronephrosis Status: Acute Assessment and plan: Patient has moderate bilateral hydronephrosis noted on CT abd/pelvis. Retention will hopefully improve after BM. - Urology is following. Current Visit: Yes (2) Bladder mass (known) Status: Acute Assessment and plan: Reportedly, pt reports this has been biopsied recently and it has been normal. He states he has this biopsied ever so often by Urology. R/O extension of his prostate cancer or could be primary in the bladder. Possible cystoscopy per urology. PSA pending Current Visit: Yes (3) Urinary tract infection/ cystitis due to Citrobacter (complicated) Status: Acute Assessment and plan: Cont Ceftriaxone. Can change to cipro or levaquin at discharge renally dosed. Current Visit: Yes (4) History of prostate cancer Status: Chronic Assessment and plan: F/U PSA Current Visit: Yes (5) Acute renal failure on CKD stage 3 likely due to obstruction + possible pre- renal causes - hold HCTZ. RFP in am. Cont gentle IVF. (6) Liver masses- RBC tagged study did not suggest hemangioma. S/P U/S guided FNA 06/22 - F/U pathology. GI following (7) Constipation- add Dulcolax suppository. If no results, soap suds enema DVT prophylaxis-early ambulation. Can do SCDs since saw small amount of hematuria earlier if prolonged hospitalization expected. D/W pt, family, and nurse and all questions answered. Dispo: pending urology / GI recommendations/ path results.
[2016-06-22] MEDS ORDERED: BISACODYL 10 MG SUPP RECTAL ONE (16:13)
[2016-06-22] MEDS ORDERED: BISACODYL 10 MG SUPP RECTAL PRN (16:13)
[2016-06-22] MEDS: PANTOPRAZOLE 40 MG TABLET PO SCH (16:37)
[2016-06-22] MEDS: SIMVASTATIN 20 MG TABLET PO SCH (18:29)
[2016-06-22] MEDS: TAMSULOSIN 0.4 MG CAPSULE PO SCH (18:30)
[2016-06-22] MEDS: cefTRIAXone 1,000 MG in SODIUM CHLORIDE 0.9% 100 ML IV SCH (20:52)
[2016-06-22] MEDS: MELATONIN 3 MG TABLET PO SCH (20:52)
--- NOTE | 2016-06-23 07:41 | Urology Progress Note ---
Urology - PN: Subj Interval history: The patient's PSA is undetectable. It would be unusual to have metastatic prostate cancer with a PSA this low. The patient is complaining of some bladder spasms so I am going to start him on low-dose Ditropan as needed Exam - Constitutional Vitals: Period Temp Pulse Resp BP Sys/Marte Pulse Ox Last 24 Hr 96.1 F-99.1 F 70-90 16-22 130-157/65-85 95-99 Results - Labs CBC & BMP: 06/20/16 08:28 06/20/16 08:28
--- NOTE | 2016-06-23 08:31 | Hospitalist Progress Note ---
Hospitalist: Subjective Interval history: Pt finally had BM yesterday but it was small. Patient states he is still feeling very full and pressure in his lower pelvis. No fever. Tolerating oral intake. No chest pain or shortness of breath. Exam - Constitutional Vitals: Period Temp Pulse Resp BP Sys/Marte Pulse Ox Last 24 Hr 96.1 F-99.1 F 70-90 16-22 130-157/65-85 95-99 Exam: GEN: A and O x 3 HEENT: Anicteric sclera, MMM CV: RRR no M LUNGS: CTAB nonlabored ABD: Soft, nontender with hepatomegaly with 2 finger breath spans below the right costophrenic angle. EXT: Warm no c/c/e Results - Labs CBC & BMP: 06/20/16 08:28 06/23/16 09:43 - Impressions (1) Urinary obstruction/ neurogenic bladder with moderate bilateral hydronephrosis Status: Acute Assessment and plan: Patient has moderate bilateral hydronephrosis noted on CT abd/pelvis. Retention will hopefully improve after BM. - Urology is following. No plans for any procedures this hospitalization per urology Current Visit: Yes (2) Bladder mass (known) Status: Acute Assessment and plan: Reportedly, pt reports this has been biopsied recently and it has been normal. He states he has this biopsied ever so often by Urology. R/O extension of his prostate cancer or could be primary in the bladder. PSA <0.1 Current Visit: Yes (3) Urinary tract infection/ cystitis due to Citrobacter (complicated) Status: Acute Assessment and plan: Cont Ceftriaxone. Can change to cipro or levaquin at discharge renally dosed. Current Visit: Yes (4) History of prostate cancer Status: Chronic Assessment and plan: PSA normal. Follow-up with his urologist in [place] at discharge. Current Visit: Yes (5) Acute renal failure on CKD stage 3 likely due to obstruction + possible pre- renal causes-improving -continue to hold HCTZ. Serial renal function panels (6) Liver masses- RBC tagged study did not suggest hemangioma. S/P U/S guided FNA 06/22 - F/U pathology. GI following (7) Constipation-start MiraLAX scheduled and undergo a soapsuds enema until clear since only minimal results with Dulcolax suppository. DVT prophylaxis-early ambulation. SCDs since saw small amount of hematuria earlier if prolonged hospitalization expected. D/W pt, family, and nurse and all questions answered. Dispo: pending GI recommendations/ path results.
[2016-06-23] MEDS: ASPIRIN EC 81 MG TABLET PO SCH (09:45)
[2016-06-23] MEDS: OXYBUTYNIN 5 MG TABLET PO PRN ×2 (09:45→18:01)
[2016-06-23] MEDS: METOPROLOL SUCCINATE XL 100 MG TABLET PO SCH (09:45)
[2016-06-23] MEDS: ASCORBIC ACID 500 MG TABLET PO SCH ×2 (09:46→20:29)
[2016-06-23] MEDS: FERROUS SULFATE 325 MG TABLET PO SCH (09:46)
[2016-06-23 10:18] LABS: Albumin 3.8 G/DL (3.4-5.0); Calcium 8.5 MG/DL (8.5-10.1); Osmolality,Calculated 288.7 MOS/KG (273-304); Phosphorous 3.2 MG/DL (2.5-4.9); Potassium 3.9 MMOL/L (3.5-5.1)
--- NOTE | 2016-06-23 13:09 | Gastrointestinal Progress Note ---
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 We should be able to distinguish between these 2 potential lesions of the liver with a tagged red blood cell scan which showed showing accumulation of RBC contrast in hemangiomas if these are identified. I suspect this patient may have a discrete lesion or potentially several but that the majority of the "innumerable lesions" are likely metastatic cancer of some type. I think will be helpful to have a biopsy demonstrating that they were consistent with prostate cancer, as opposed to a secondary metastasis from another site versus primary hepatocellular carcinoma. If the tagged red blood cell scan is negative for evidence of hemangiomas with probably be safe in obtaining a liver biopsy of 1 of the larger lesions to make the diagnosis of metastatic cancer. 06/22/16--the patient did have a hemangioma study done yesterday which showed no convincing evidence of hemangiomas in the liver. CT scan demonstrated numerous hypoechoic lesions and so possibly random biopsy may show if there was cancer in the liver however I do not believe this will be the case. Patient's liver function tests are normal and if there was diffuse involvement of the liver the alkaline phosphatase and bilirubin likely would be higher. As well as the transaminases. These were all normal. The echotexture may be increased for other reasons such as fatty infiltration. We will try and obtain a fine-needle biopsy of the largest lesion which is 2.3 cm in size through interventional radiology. This could be done with either CT scan or ultrasound. 06/23/16--Awaiting pathology from the liver biopsy specimen taken today. This should be back shortly. LFTs remain entirely normal. 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 The colon is essentially ruled out as a site of potential cancer at this point. 06/22/16--repeat colonoscopy in 5 years from last i.e. January 2020, should the patient be well enough to undergo this procedure. 06/23/16--repeat colonoscopy in January 2020 Current Visit: Yes (3) History of esophageal stricture Status: Acute Assessment and plan: The patient was having some nausea and vomiting earlier secondary to abdominal pain caused by the hydronephrosis but now feels great deal better. Acid blockade would likely be helpful over time. His nausea continues to get better after catheterization. No need for dilation in the short-term as he is really not getting food stuck at this point. EGD was last done approximately [address] Meng. Suggest daily Protonix. 06/22/16--No further upper endoscopy desired. The patient is not having any dysphagia at this time and does not feel any acid reflux. Continue daily Protonix. 06/23/16--No further problems. Current Visit: Yes (4) Abnormal weight loss Status: Acute Assessment and plan: Continue to monitor this. This is likely secondary to his metastatic prostate cancer with underlying disability, and multiple medical problems. 06/22/16--Continue to monitor the weight is a patient is eating better now that his bladder is emptying better. 06/23/16--Appetite continues to be a problem with this patient. We may need to consider Remeron versus Marinol in the near future. Current Visit: Yes Gastroenterology - PN: Subj Interval history: Poor appetite, patient has bilateral lower quadrant pain that continues referred from his prostate cancer. Tolerated biopsy of the liver well. He states, "that hurt less than I thought it would". Exam (Progress Note) - Constitutional Vitals: Period Temp Pulse Resp BP Sys/Marte Pulse Ox Last 24 Hr 96.1 F-98.6 F 70-90 18-22 134-157/65-85 95-99 General appearance: no acute distress - Head Head exam: Present: normocephalic - Eye Eye exam: Present: EOMI - Respiratory Respiratory exam: Present: clear to auscultation bilaterally - Cardiovascular Cardiovascular exam: Present: regular rate and rhythm - GI/Abdominal GI/Abdominal exam: Present: normal bowel sounds, tenderness (Bilateral lower quadrant pains on deep palpation), soft. Absent: distended, guarding - Extremities Exam Extremities exam: Present: full ROM. Absent: edema - Neurological Exam Neurological exam: Present: alert, oriented X3 - Skin Skin exam: Present: warm Results - Labs CBC & BMP: 06/20/16 08:28 06/23/16 09:43
[2016-06-23] MEDS: SODIUM CHLORIDE 0.45% 1,000 ML IV SCH (14:10)
[2016-06-23] MEDS: POLYETHYLENE GLYCOL POWDER 17 GM PACK PO SCH (15:39)
[2016-06-23] MEDS ORDERED: MAGNESIUM CITRATE 300 ML BOTTLE PO ONE (16:06)
[2016-06-23] MEDS: PANTOPRAZOLE 40 MG TABLET PO SCH (17:01)
[2016-06-23] MEDS: TAMSULOSIN 0.4 MG CAPSULE PO SCH (18:01)
[2016-06-23] MEDS: SIMVASTATIN 20 MG TABLET PO SCH (18:01)
[2016-06-23] MEDS: MELATONIN 3 MG TABLET PO SCH (20:30)
[2016-06-23] MEDS: cefTRIAXone 1,000 MG in SODIUM CHLORIDE 0.9% 100 ML IV SCH (20:31)
[2016-06-24 05:40] LABS: Albumin 3.4 G/DL (3.4-5.0); Calcium 8.1 MG/DL (8.5-10.1); Osmolality,Calculated 290.7 MOS/KG (273-304); Phosphorous 3.7 MG/DL (2.5-4.9); Potassium 4.2 MMOL/L (3.5-5.1)
--- NOTE | 2016-06-24 07:46 | Urology Progress Note ---
Urology - PN: Subj Interval history: Liver biopsy report is pending. I would be surprised if this is prostate cancer in the face with an undetectable PSA Exam - Constitutional Vitals: Period Temp Pulse Resp BP Sys/Marte Pulse Ox Last 24 Hr 96.5 F-98.5 F 74-87 16-20 116-165/58-90 95-99 Results - Labs CBC & BMP: 06/20/16 08:28 06/24/16 04:48
[2016-06-24] MEDS: ASPIRIN EC 81 MG TABLET PO SCH (09:02)
[2016-06-24] MEDS: OXYBUTYNIN 5 MG TABLET PO PRN ×2 (09:02→18:17)
[2016-06-24] MEDS: ASCORBIC ACID 500 MG TABLET PO SCH ×2 (09:02→20:39)
[2016-06-24] MEDS: FERROUS SULFATE 325 MG TABLET PO SCH (09:02)
[2016-06-24] MEDS: METOPROLOL SUCCINATE XL 100 MG TABLET PO SCH (09:03)
[2016-06-24] MEDS: POLYETHYLENE GLYCOL POWDER 17 GM PACK PO SCH (09:03)
--- NOTE | 2016-06-24 10:06 | Discharge Summary ---
Addendum entered and electronically signed by Nicci Amos PA 06/30/16 10:07: Patient's discharge delay due to liver biopsy results confirming adenocarcinoma of the colon. This was metastatic to the liver with an undefined primary site. Dr. Reza from oncology was consulted. He will need to follow-up with him to continue his evaluation and start chemotherapy. Patient underwent cystoscopy by Dr. Thurston on 06/28/2016 there was very difficult because of the previous radiation. Biopsies were taken the results of these are pending. Patient will need to undergo intermittent catheterizations. Patient also underwent EGD with cold biopsy for pathology on 06/29/[address] Sotelo. He did find evidence of gastroparesis in the stomach and mild stasis gastritis. He took some biopsies to rule out gastritis and adenocarcinoma. He did find some prepyloric erythema and probable intestinal metaplasia changes that were biopsied. Patient is to follow-up the biopsy results in 1-2 weeks, continue his anti-reflex measures, start Reglan 5 mg elixir before meals and nightly to help out with the gastroparesis and continue Protonix 40 daily. Patient is ready for discharge home with a one-week follow-up with Dr. Reza for biopsy results and chemotherapy. Original Note: <BourneThadrudifranciscoadan - Last Filed: 06/24/16 10:11> Hospital Course - Hospital Course Hospital Course: Mr. Figueredo is a 65 year old male with a past medical history of prostate cancer hypertension and BPH who has been feeling poorly lately. Patient reported to the ED on 06/20 for further evaluation of symptoms. Pt [facility]. Pt. reports lower abdominal pain, loss of appetite, inability to sleep, and generalized weakness. He also says that he gets dizzy upon standing. In the ED a CT scan was ordered. It displayed multiple metallic prostate seeds. There was pelvic postop changes with the ventral pelvic They labeled it is malignant being probable. There was a 37 mm calcification at the ureter ago vesicle junction which may be an obstructing stone. They do say that neoplastic invasion cannot be excluded. There are multiple poorly defined hypodense hepatic masses of various sizes strongly suggestive of liver metastasis. The patient was admitted to the hospitalist service for further evaluation and treatment of urinary obstruction, mass, acute kidney injury, and urinary tract infection. Urology was consulted to assist in the patient's care. UTI was treated with ceftriaxone. Urology saw patient. Impression was that the urinary tract infection was secondary to intermittent catheterizations. PSA levels were checked and GI was consulted for possible liver metastases. A liver biopsy was performed on 06/22. The patient's PSA also resulted on the and was undetectable. per Urology with a level that low, it would be unusual to have metastatic prostate CA. Pt. is currently awaiting results of liver biopsy. Pt.'s condition has improved but there are still complaints of decreased appetite. That issue has been addressed by GI. Pt will be ready to be discharged soon with follow up. MD to follow. Specialty Discharge - Follow Up or Referrals Follow up with: Jm Reza MD [Physician] - 07/06/16 10:00 am Discharge Plan - Discharge Data Disposition: Disch To Home/Self Care - Discharge Medications New Ciprofloxacin Tab [Cipro Tab] 500 mg PO BID #10 tablet Metoclopramide Liquid [Reglan Liquid] 5 mg PO ACHS #300 Oxybutynin [Ditropan] 5 mg PO TID PRN #90 tablet PRN Reason: Bladder spasms Continue Simvastatin [Zocor] 20 mg PO QPM Zolpidem Tartrate [Ambien] 10 mg PO BEDTIME Tamsulosin [Flomax] 0.4 mg PO QPM hydroCHLOROthiazide [Hydrochlorothiazide] 12.5 mg PO DAILY Ferrous Sulfate [Ferrous Sulfate Cap] 325 mg PO DAILY HYDROcodone/ACETAMIN 5-325 [[place] 5-325] 1 tablet PO Q4H PRN PRN Reason: Pain Melatonin 3 mg PO BEDTIME Aspirin EC Tab 81 mg PO DAILY Metoprolol Succinate 50 mg PO DAILY Ascorbic Acid 1,000 mg PO BID Albuterol Inhaler [Proventil Inhaler] 1 puff INH BID PRN PRN Reason: Shortness Of Breath/Wheezing Phenazopyridine HCl [Azo Urinary Pain Relief] 97.5 mg PO DAILY PRN PRN Reason: UTI Sildenafil Citrate [Viagra] 100 mg PO DAILY PRN PRN Reason: Erectile Dysfunction Pantoprazole Tab [Protonix Tab] 40 mg PO DAILY #60 - Follow Up or Referral Follow Up: Jm Reza MD [Physician] - 07/06/16 10:00 am - Forms/Instructions Exam - Constitutional Vitals: Period Temp Pulse Resp BP Sys/Marte Pulse Ox Last 24 Hr 96.9 F-99.4 F 56-81 17-20 106-161/58-76 92-99 Discharge Results Procedures and tests throughout hospitalization: Pending Orders 06/24/16 13:38 MR abdomen w con Stat DS: Provider Date of admission: 06/20/16 00:25 Primary care physician: . No PCP Attending physician on admission: Keenan Cespedes MD Consults: 06/20/16 00:52 Consult to Physician [CONS] Routine Comment: Consulting Provider: Bryan Thurston Consulting Provider Notified: Yes When should Consulting Provider be notified: Now Consult to Specialist Group: Urology When should Consulting Provider be notified: Now Person Notified: DOV Date Notified: 06/20/16 Time Notified: 08:47 06/20/16 01:42 Consult to Dietitian [CONS] Routine Reason for Dietitian: Dietary Consult 06/20/16 12:59 Consult to Physician [CONS] Routine Comment: Multiple hepatic mets, hx. of prostate ca, Consulting Provider: Migue Sotelo Consulting Provider Notified: Yes When should Consulting Provider be notified: Now Consult to Specialist Group: Gastroenterology When should Consulting Provider be notified: Now Person Notified: SUMI Date Notified: 06/20/16 Time Notified: 15:08 06/24/16 13:40 Consult to Physician [CONS] Routine Comment: newly diagnosed colon cancer, hx prostate cancer Consulting Provider: Jm Reza Consulting Provider Notified: Yes When should Consulting Provider be notified: Now Consult to Specialist Group: Oncology When should Consulting Provider be notified: Now Person Notified: JIM Date Notified: 06/24/16 Time Notified: 13:51 06/25/16 09:43 Consult to Physician [CONS] Routine Comment: L4 thecal sac compression suspected due to mets Consulting Provider: Richar Treadwell Consulting Provider Notified: Yes When should Consulting Provider be notified: Now Consult to Specialist Group: Radiation Oncology When should Consulting Provider be notified: Now Person Notified: KARIE Date Notified: 06/27/16 Time Notified: 14:06 06/28/16 14:02 Consult to Anesthesiology [CONS] Routine Consulting Provider: Reason for Anesthesiology: Pre-op Clearance Discharging clinician: Onesimo Bourne NP <Brenden Patel - Last Filed: 06/30/16 10:44> Discharge Plan - Discharge Data Condition at Discharge: Stable Discharge Diet: diabetic diet Activity: resume usual activities as tolerated
[2016-06-24] MEDS: SODIUM CHLORIDE 0.45% 1,000 ML IV SCH ×3 (11:45→20:46)
--- NOTE | 2016-06-24 12:17 | Gastrointestinal Progress Note ---
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 We should be able to distinguish between these 2 potential lesions of the liver with a tagged red blood cell scan which showed showing accumulation of RBC contrast in hemangiomas if these are identified. I suspect this patient may have a discrete lesion or potentially several but that the majority of the "innumerable lesions" are likely metastatic cancer of some type. I think will be helpful to have a biopsy demonstrating that they were consistent with prostate cancer, as opposed to a secondary metastasis from another site versus primary hepatocellular carcinoma. If the tagged red blood cell scan is negative for evidence of hemangiomas with probably be safe in obtaining a liver biopsy of 1 of the larger lesions to make the diagnosis of metastatic cancer. 06/22/16--the patient did have a hemangioma study done yesterday which showed no convincing evidence of hemangiomas in the liver. CT scan demonstrated numerous hypoechoic lesions and so possibly random biopsy may show if there was cancer in the liver however I do not believe this will be the case. Patient's liver function tests are normal and if there was diffuse involvement of the liver the alkaline phosphatase and bilirubin likely would be higher. As well as the transaminases. These were all normal. The echotexture may be increased for other reasons such as fatty infiltration. We will try and obtain a fine-needle biopsy of the largest lesion which is 2.3 cm in size through interventional radiology. This could be done with either CT scan or ultrasound. 06/23/16--Awaiting pathology from the liver biopsy specimen taken today. This should be back shortly. LFTs remain entirely normal. 06/24/16--The pathology is still pending at this time. The patient is likely going to be discharged in the next 48 hours. I can certainly follow this up as an outpatient once the biopsy results are available. 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 The colon is essentially ruled out as a site of potential cancer at this point. 06/22/16--repeat colonoscopy in 5 years from last i.e. January 2020, should the patient be well enough to undergo this procedure. 06/23/16--repeat colonoscopy in January 2020 06/24/16--Repeat colonoscopy as noted above. Current Visit: Yes (3) History of esophageal stricture Status: Acute Assessment and plan: The patient was having some nausea and vomiting earlier secondary to abdominal pain caused by the hydronephrosis but now feels great deal better. Acid blockade would likely be helpful over time. His nausea continues to get better after catheterization. No need for dilation in the short-term as he is really not getting food stuck at this point. EGD was last done approximately [address] Meng. Suggest daily Protonix. 06/22/16--No further upper endoscopy desired. The patient is not having any dysphagia at this time and does not feel any acid reflux. Continue daily Protonix. 06/23/16--No further problems. 06/24/16--no further problems Current Visit: Yes (4) Abnormal weight loss Status: Acute Assessment and plan: Continue to monitor this. This is likely secondary to his metastatic prostate cancer with underlying disability, and multiple medical problems. 06/22/16--Continue to monitor the weight is a patient is eating better now that his bladder is emptying better. 06/23/16--Appetite continues to be a problem with this patient. We may need to consider Remeron versus Marinol in the near future. 06/24/16--we will continue to use Protonix. This patient may respond to Remeron or Marinol us if needed in the future if he does not respond to the Protonix in the next 2 weeks. Current Visit: Yes Gastroenterology - PN: Subj Interval history: Patient is now having 2-3 bowel movements a day secondary to MiraLAX use. He has a slightly improved appetite has result of use of Protonix and routine bladder emptying through self-catheterization. He notes that his pain is worse when his bladder is emptied. Dr. Hayes is pursuing a MRI of the spine to make sure there is no metastatic cancer from the prostate. The biopsies from the liver lesion are still pending at this time. Exam (Progress Note) - Constitutional Vitals: Period Temp Pulse Resp BP Sys/Marte Pulse Ox Last 24 Hr 96.5 F-98.5 F 60-87 16-20 116-165/58-90 95-99 General appearance: mild distress - Head Head exam: Present: normocephalic, atraumatic - Eye Eye exam: Present: EOMI Pupils: Present: DARIAN - Neck Neck exam: Present: normal inspection - Respiratory Respiratory exam: Present: clear to auscultation bilaterally. Absent: rhonchi, stridor, wheezes - Cardiovascular Cardiovascular exam: Present: regular rate and rhythm - GI/Abdominal GI/Abdominal exam: Present: normal bowel sounds, soft. Absent: distended, guarding, tenderness, rebound - Extremities Exam Extremities exam: Absent: edema - Neurological Exam Neurological exam: Present: alert, oriented X3. Absent: CN II-XII intact - Psychiatric Psychiatric exam: Present: normal affect, normal mood - Skin Skin exam: Present: warm Results - Labs CBC & BMP: 06/20/16 08:28 06/24/16 04:48
--- NOTE | 2016-06-24 13:51 | Hospitalist Progress Note ---
Hospitalist: Subjective Interval history: D/W Dr. Clarke in pathology and reports path is positive for colon adenocarcinoma. Pt has had 3 bowel movements but still feels pain in back, abdomen, and lower pelvis. Eating approximately 25% of meals. No cp or SOB. Exam - Constitutional Vitals: Period Temp Pulse Resp BP Sys/Marte Pulse Ox Last 24 Hr 96.5 F-98.5 F 60-83 16-20 116-165/58-90 95-98 Exam: GEN: A and O x 3 HEENT: Anicteric sclera, MMM CV: RRR no M LUNGS: CTAB nonlabored ABD: Soft, nontender with hepatomegaly with 2 finger breath spans below the right costophrenic angle. EXT: Warm no c/c/e Results - Labs CBC & BMP: 06/20/16 08:28 06/24/16 04:48 - Impressions (1) Metastatic colon cancer with mets to liver - Liver biopsy results confirm adenocarcinoma of the colon. Will send [facility]. Notify GI and consult oncology to arrange a plan. Will check CT chest, abd/ pelvis and check MRI of spine with contrast (2) Urinary obstruction/ neurogenic bladder with moderate bilateral hydronephrosis Status: Acute Assessment and plan: Patient has moderate bilateral hydronephrosis noted on CT abd/pelvis. - Urology is following. No plans for any procedures this hospitalization per urology Current Visit: Yes (3) Bladder mass (known) Status: Acute Assessment and plan: Reportedly, pt reports this has been biopsied recently and it has been normal. He states he has this biopsied ever so often by Urology. R/O extension of his prostate cancer or could be primary in the bladder vs. extension of colon cancer. PSA <0.1 Current Visit: Yes (4) Urinary tract infection/ cystitis due to Citrobacter (complicated) Status: Acute Assessment and plan: Cont Ceftriaxone (06/20- ). Can change to cipro or levaquin at discharge renally dosed. Current Visit: Yes (4) History of prostate cancer Status: Chronic Assessment and plan: PSA normal. Follow-up with his urologist in [place] at discharge. Current Visit: Yes (5) Acute renal failure on CKD stage 3 likely due to obstruction + possible pre- renal causes-improving -continue to hold HCTZ. Serial renal function panels. Add mucomyst and IVF. Recheck labs in am (6) Liver masses- RBC tagged study did not suggest hemangioma. S/P U/S guided FNA 06/22 - F/U pathology. GI following (7) Constipation- cont MiraLAX scheduled. DVT prophylaxis-early ambulation. SCDs since saw small amount of hematuria earlier if prolonged hospitalization expected. D/W pt, nurse, and senior case manager and all questions answered. Dispo: pending GI and oncology recommendations. D/W pt path results and all questions answered.
[2016-06-24] MEDS: ACETYLCYSTEINE 600 MG CAPSULE PO SCH ×2 (15:08→20:39)
--- NOTE | 2016-06-24 17:14 | Magnetic Resonance Report ---
Exam: MR lumbar spine wo/w con Date: 06/24/2016 1:38 PM Comparison: CT chest, abdomen, and pelvis 09/01/2016, lumbar spine x-ray 11/17/2014 Indication: Back pain with history of prostate and colon cancer Technique:[Multiple acquisitions were obtained including sagittal T2, STIR, and T1 scans before and after the injection of 15 cc of Dotarem and axial T2 and T1 scans before and after injection of contrast. Scans were obtained on a 1.5 Lashaun magnet.] Findings: Minimal straightening of the lumbar spine. Diffuse predominantly hypointensity in the marrow on all series. There are scattered T1 and T2 hyperintensities which can be seen with possible hemangiomata or focal fatty marrow. There is additional 21 mm lesion inferiorly on the left side of L4 which is hyperintense on STIR and hypointense on T1. There is significant enhancement with in this finding on the postcontrast scans. Limited evaluation of the sacrum but there is abnormal enhancement noted anteriorly on the left side at the sacral promontory and more inferiorly in the left sacrum adjacent to the SI joint where there is a 34 mm area of enhancement. Additional smaller areas of enhancement are noted scattered throughout the lumbar vertebra. The conus has a normal appearance and terminates at the level of L1. Persistent bilateral hydronephrosis. Diffuse disc degeneration. The disc spaces are as follows: L1-L2: No disc protrusion, spinal stenosis, or foraminal stenosis. Degenerative changes of the facet joints. L2-L3: Diffuse osteophyte/disc complex which compresses the thecal sac. No spinal stenosis with minimal bilateral foraminal stenosis. Degenerative changes in facet joints. No re-L4: Diffuse osteophyte/disc complex which compresses the thecal sac. No spinal stenosis or foraminal stenosis. Degenerative changes in the facet joints. L4-L5: Diffuse osteophyte/disc complex which compresses the thecal sac and extends posterior laterally bilaterally. No spinal stenosis with minimal left foraminal stenosis. Degenerative changes in the facet joints. L5-S1: Disc space narrowing with diffuse osteophyte/disc complex which does not significantly compress the thecal sac. No spinal stenosis with minimal bilateral foraminal stenosis. Degenerative changes in the facet joints. Impression: No acute fracture identified. Diffuse abnormal marrow which may be related in part to marrow reconversion, myelofibrosis, myelodysplastic syndrome, etc. Additional hemangiomata/focal fatty marrow. However there are findings consistent with metastatic disease especially at L4, sacral promontory and the left side of the sacrum. Persistent bilateral hydronephrosis. PROCEDURE INTERPRETED AT [facility] DEPARTMENT OF RADIOLOGY Final Report Signed by: Dr. Tawny Cartwright
[2016-06-24] MEDS: SIMVASTATIN 20 MG TABLET PO SCH (18:17)
[2016-06-24] MEDS: PANTOPRAZOLE 40 MG TABLET PO SCH (18:17)
[2016-06-24] MEDS: TAMSULOSIN 0.4 MG CAPSULE PO SCH (18:17)
--- NOTE | 2016-06-24 18:22 | CT Report ---
CT chest abdomen pelvis w con Indication: Colon cancer Comparison: CT abdomen pelvis 19 Jun 2016 Technique: Axial CT imaging of the chest, abdomen and pelvis is performed with intravenous and oral contrast. Contrast dose is 100 cc of Omnipaque 350. Findings: CT chest: Heart, mediastinum are within normal limits. The great vessels show no evidence of abnormality Chronic lung changes are present. Calcified granuloma seen in the right middle lobe. Small noncalcified nodule 3 mm in size is present in the right upper lobe. No other evidence of lung parenchymal abnormality is seen. No pneumothorax or effusion is present. No chest wall abnormalities are identified. CT abdomen: The liver has multiple nonenhancing lesions similar to previous CT. Spleen has multiple nonenhancing areas, the largest is estimated 2.7 cm in size. Pancreas and adrenal glands are normal in size and enhancement. No evidence of focal lesion is demonstrated in the solid organs. There is severe bilateral hydronephrosis and delayed contrast excretion. The hydronephrosis findings are similar to previous study. No enlarged lymph nodes are identified. The bowel caliber is normal and no wall thickening or adjacent inflammatory change is seen. No evidence of free fluid or free air is present. CT pelvis: The bowel and bladder appear within normal limits. The prostate gland has mass in the superior left aspect with some calcifications stable in appearance when compared to previous exam. Impression: Nonenhancing hepatic lesions similar to previous exam. Low-density areas within the spleen, the largest is 2.7 cm in size. Hydronephrosis and prostate mass are similar to previous exam. Small noncalcified nodule in the right upper lobe 3 mm in size. No colon mass is seen, correlate with colonoscopy findings. PROCEDURE INTERPRETED AT [facility] DEPARTMENT OF RADIOLOGY Final Report Signed by: Dr. Rodrick Kang
[2016-06-24] MEDS: MELATONIN 3 MG TABLET PO SCH (20:39)
[2016-06-24] MEDS: cefTRIAXone 1,000 MG in SODIUM CHLORIDE 0.9% 100 ML IV SCH (20:46)
[2016-06-25] MEDS: SODIUM CHLORIDE 0.45% 1,000 ML IV SCH ×3 (07:44→16:23)
--- NOTE | 2016-06-25 09:24 | Event Note ---
Patient's pathology reviewed over the weekend. Prostate cancer treated as per Dr. Thurston. Lesion in the liver proved to be adenocarcinoma with markers that point towards colon primary. This patient had a recent colonoscopy with me in January of 2015 during which hyperplastic polyps were found in the sigmoid. I didn't see any cancer at the time, but the patient had had a tubulovillous [place] [address] scan doesn't show a colon mass. Cased discussed with Dr. Hannah, we will arrange Colyte prep ( creat = 1.8-1.9) for Monday with repeat colonoscopy on Monday.
--- NOTE | 2016-06-25 09:28 | Hospitalist Progress Note ---
Hospitalist: Subjective Interval history: Appetite is variable. No chest pain or shortness of breath. He reports bowel movement but still describes back pain that radiates towards his groin. He is able to ambulate. He denies any feelings of pins or needles radiating down his legs. Exam - Constitutional Vitals: Period Temp Pulse Resp BP Sys/Marte Pulse Ox Last 24 Hr 96.2 F-98.6 F 75-98 18-20 118-159/66-81 96-98 Exam: GEN: A and O x 3 HEENT: Anicteric sclera, MMM CV: RRR no M LUNGS: CTAB nonlabored ABD: Soft, nontender with hepatomegaly with 2 finger breath spans below the right costophrenic angle. EXT: Warm no c/c/e Results - Labs CBC & BMP: 06/20/16 08:28 06/24/16 04:48 - Impressions (1) Metastatic colon cancer with mets to liver - Liver biopsy results confirm adenocarcinoma of the colon. CEA elevated. AFP was negative. GI plans colonoscopy 06/26. Awaiting oncology recommendations. CT chest, abd/ pelvis was reviewed and showed liver lesions but no colonic mass or any pathology noted in the chest. MRI of spine with contrast showed a suspicious lesion around L4 with arthritis impinging on the thecal sac. I discussed this in detail with oncology with agreement to initiate steroid therapy. There is no neurosurgery available at this facility and oncology does not feel the patient requires transfer for any treatment at this time. (2) Urinary obstruction/ neurogenic bladder with moderate bilateral hydronephrosis Status: Acute Assessment and plan: Patient has moderate bilateral hydronephrosis noted on CT abd/pelvis. - Urology is following. No plans for any procedures this hospitalization per urology - Evidence of possible thecal compression of L4 which radiologist feels may be related to metastatic disease. Start IV steroids and await oncology final recommendation. Current Visit: Yes (3) Bladder mass (known) Status: Acute Assessment and plan: Reportedly, pt reports this has been biopsied recently and it has been normal. He states he has this biopsied ever so often by Urology. R/O extension of his prostate cancer or could be primary in the bladder vs. extension of colon cancer. PSA <0.1 Current Visit: Yes (4) Urinary tract infection/ cystitis due to Citrobacter (complicated) Status: Acute Assessment and plan: Cont Ceftriaxone (5/8- ). Can change to cipro or levaquin at discharge renally dosed. Current Visit: Yes (4) History of prostate cancer Status: Chronic Assessment and plan: PSA normal. Follow-up with his urologist in [place] at discharge. Current Visit: Yes (5) Neurogenic bowel - Evidence of possible thecal compression of L4 which radiologist feels may be related to metastatic disease. Start IV steroids and await oncology recommendation. No neurosurgery services available at this facility. See #2 (6) Acute renal failure on CKD stage 3 likely due to obstruction + possible pre- renal causes-improving. Creatinine stable at 1.8- 1.9 -continue to hold HCTZ. Serial renal function panels. Continue Mucomyst and IVF. Recheck labs in am (6) Liver masses- RBC tagged study did not suggest hemangioma. S/P U/S guided FNA 06/22 - F/U pathology. GI following (7) Constipation- cont MiraLAX scheduled. DVT prophylaxis-early ambulation. SCDs since saw small amount of hematuria earlier if prolonged hospitalization expected. D/W pt, , daughter and all questions answered. Discussed with oncology. Dispo: pending GI and oncology recommendations. I will be away several days. 1 of my associates will follow in my absence.
--- NOTE | 2016-06-25 09:30 | Oncology Consult Note ---
Assessment and Plan (1) Liver metastases Status: Acute Assessment and plan: pathology from 06/24/16 consistent with adenocarcinoma of colon primary - discussed pathology findings and CT CAP as well as MRI lumbar spine findings with the patient - discussed likely stage 4 colon cancer with mets to liver, L4 spine, possible lung and spleen - discussed case with GI and will plan on a colonoscopy for Monday to determine if primary present - will add on CA 19 9 and AFP levels - patient with no definite symptoms of acute cord compression with no LE weakness, no change in LE sensation, normal rectal tone, and no fallon-anal numbness. - patients urinary retention is more chronic and can be attributed to his prior prostate Ca and BPH - given MRI findings of L4 metastasis with thecal sac compression agree with neurosurgery evaluation and decadron 4 mg IV Q6h / PPI. if no neurosurgery intervention patient would benefit from a radiation oncology evaluation - will add to patients pain medication regimen oxycodone 15 mg PO Q6h - will ask pathology to do additional KOURTNEY mutation analysis testing thank you for consult, will continue to follow. please call with any questions Current Visit: Yes History of Present Illness Chief complaint: pathology diagnostic colon cancer History of present illness: Mr. Figueredo is a 65 year old male PMHx of prostate cancer treated with radiation seeds in 2012 followed by urology with a low PSA level, HTN, CKD secondary to hydronephrosis and BPH needing self catheterization 3xday for last 3 months admitted for worsening lower/RUQ abdominal pain over the course of the last week as well as 20 lb weight loss in the last month. Pain in lower abdomen radiations around waist to back. On admission patient had a CT CAP concerning for innumerable liver lesions, an indeterminant 3 mm RUL lung nodule, indeterminant lesion in spleen, and MRI spine suggestive of a L4 met with possible thecal sac compression. Patient does not have weakness of LE, change in sensation LE. A liver biopsy returned as adenocarcinoma consistent with a colon primary and an elevated CEA level of 999. Patient had a colonoscopy in with a hyperplastic polyp and a colonoscopy in 2010 with a tubular adenoma. Patient has a strong family history of colon cancer in his brother and sister. No blood in stool. No N/V/D. Continues to have bowel movements though needing stool softners and laxatives. No fevers. Being treated for a UTI. Home Medications Medication Instructions Recorded Confirmed Type Ferrous Sulfate [Ferrous Sulfate 325 mg PO DAILY 01/23/15 06/20/16 History Cap] Pantoprazole Tab [Protonix Tab] 40 mg PO DAILY 01/23/15 06/20/16 History Simvastatin [Zocor] 20 mg PO QPM 01/23/15 06/20/16 History Tamsulosin [Flomax] 0.4 mg PO QPM 01/23/15 06/20/16 History Zolpidem Tartrate [Ambien] 10 mg PO BEDTIME 01/23/15 06/20/16 History hydroCHLOROthiazide 12.5 mg PO DAILY 01/23/15 06/20/16 History [Hydrochlorothiazide] Albuterol Inhaler [Proventil 1 puff INH BID PRN 06/19/16 06/20/16 History Inhaler] Ascorbic Acid 1,000 mg PO BID 06/19/16 06/20/16 History Aspirin EC Tab 81 mg PO DAILY 06/19/16 06/20/16 History HYDROcodone/ACETAMIN 5-325 [Guion 1 tablet PO Q4H PRN 06/19/16 06/20/16 History 5-325] Melatonin 3 mg PO BEDTIME 06/19/16 06/20/16 History Metoprolol Succinate 50 mg PO DAILY 06/19/16 06/20/16 History Phenazopyridine HCl [Azo Urinary 97.5 mg PO DAILY PRN 06/19/16 06/20/16 History Pain Relief] Sildenafil Citrate [Viagra] 100 mg PO DAILY PRN 06/19/16 06/20/16 History Allergies Allergy/AdvReac Type Severity Reaction Status Date / Time No Known Allergies Allergy Verified 01/23/15 14:52 Medical,Surgical,& Family Hx - Medical History Cardio: History of: Hypertension Neurology: History of: TIA No history of: Seizures Renal: History of: Renal Failure Genitourinary: History of: Recurring Urinary Tract Infections, Problems ( self catheterizes due to inability to void related to prostate CA) Gastrointestinal: History of: GI Problems (anemia) Other: History of: Cancer (prostate) - Surgical History Abdominal Surgeries: Surgical HX of: Colonoscopy Reproductive Surgeries: Surgical HX of;: Prostate Surgery - Family History Family History: Reports;: Family Cancer - Social History Smoking Status: Never smoker Frequency of Alcohol Use: None Type of Drug Use: None - Constitutional Constitutional: Present: fatigue, malaise, weakness, weight loss. Absent: chills, fever(s), increased appetite, weight gain - EENT Nose, mouth and throat: Present: dizziness - Cardiovascular Cardiovascular ROS IM: Absent: chest pain, edema, orthopnea - Respiratory Respiratory: Absent: cough, dyspnea, hemoptysis - Gastrointestinal Gastrointestinal: Present: abdominal pain, constipation, early satiety. Absent : change in bowel habits, dysphagia, fecal incontinence, hematemesis, hematochezia, loose stools, melena, nausea, vomiting - Genitourinary Genitourinary ROS male: Present: difficulty urinating. Absent: hematuria, nocturia - Musculoskeletal Musculoskeletal ROS: Absent: back pain - Neurological Neurological ROS: Absent: abnormal gait, headache(s), numbness, paresthesias - Psychiatric Psychiatric General: Absent: anxiety - Hematologic/Lymphatic Hematologic/Lymphatic: Absent: easy bleeding Exam - Constitutional Vitals: Period Temp Pulse Resp BP Sys/Marte Pulse Ox Last 24 Hr 96.2 F-98.6 F 75-98 18-20 118-159/66-81 96-98 General appearance: normal weight, no acute distress - Eye Eye Exam: Absent: EOMI - Respiratory Respiratory exam: Present: CTAB - Cardiovascular Cardiovascular exam: Present: RRR - GI/Abdominal GI/Abdominal exam: Present: guarding (voluntary guarding), tenderness (lower abdomen and RUQ), soft, other (normal rectal tone and perianal sensation). Absent: ascites, distended, mass - Extremities Exam Extremities exam: Present: edema (1+) - Neurological Exam Neurological exam: Present: alert, oriented X3 - Psychiatric Psychiatric exam: Present: normal affect - Skin Skin exam: Present: warm Results - Labs CBC & BMP: 06/20/16 08:28 06/24/16 04:48
[2016-06-25] MEDS: OXYBUTYNIN 5 MG TABLET PO PRN ×2 (09:53→20:31)
[2016-06-25] MEDS: FERROUS SULFATE 325 MG TABLET PO SCH (09:53)
[2016-06-25] MEDS: ASCORBIC ACID 500 MG TABLET PO SCH ×2 (09:53→20:26)
[2016-06-25] MEDS: ACETYLCYSTEINE 600 MG CAPSULE PO SCH ×2 (09:53→20:26)
[2016-06-25] MEDS: ASPIRIN EC 81 MG TABLET PO SCH (09:53)
[2016-06-25] MEDS: METOPROLOL SUCCINATE XL 100 MG TABLET PO SCH (09:54)
[2016-06-25] MEDS: POLYETHYLENE GLYCOL POWDER 17 GM PACK PO SCH (09:57)
[2016-06-25] MEDS ORDERED: DEXAMETHASONE 4 MG/1 ML VIAL IM SCH (10:00)
[2016-06-25] MEDS: BISACODYL 5 MG TABLET PO SCH ×2 (10:01→18:06)
--- NOTE | 2016-06-25 10:03 | Urology Progress Note ---
Urology - PN: Subj Interval history: Liver biopsy report noted. Patient will continue intermittent self- catheterization Exam - Constitutional Vitals: Period Temp Pulse Resp BP Sys/Marte Pulse Ox Last 24 Hr 96.2 F-98.6 F 75-98 18-20 118-159/66-81 96-98 Results - Labs CBC & BMP: 06/20/16 08:28 06/24/16 04:48
[2016-06-25] MEDS: DEXAMETHASONE 4 MG/1 ML VIAL IV SCH ×2 (10:30→18:07)
[2016-06-25] MEDS: oxyCODONE IR 5 MG TABLET PO PRN ×2 (14:47→22:12)
[2016-06-25] MEDS: SIMVASTATIN 20 MG TABLET PO SCH (18:07)
[2016-06-25] MEDS: TAMSULOSIN 0.4 MG CAPSULE PO SCH (18:07)
[2016-06-25] MEDS: PANTOPRAZOLE 40 MG TABLET PO SCH (18:07)
[2016-06-25] MEDS: MELATONIN 3 MG TABLET PO SCH (20:26)
[2016-06-25] MEDS: cefTRIAXone 1,000 MG in SODIUM CHLORIDE 0.9% 100 ML IV SCH (20:27)
[2016-06-26] MEDS: BISACODYL 5 MG TABLET PO SCH (01:56)
[2016-06-26] MEDS: DEXAMETHASONE 4 MG/1 ML VIAL IV SCH ×2 (01:57→09:26)
[2016-06-26] MEDS: SODIUM CHLORIDE 0.45% 1,000 ML IV SCH ×4 (01:59→19:22)
[2016-06-26 05:39] LABS: Albumin 3.6 G/DL (3.4-5.0); Calcium 8.4 MG/DL (8.5-10.1); Osmolality,Calculated 286.1 MOS/KG (273-304); Phosphorous 3.9 MG/DL (2.5-4.9); Potassium 4.6 MMOL/L (3.5-5.1)
[2016-06-26] MEDS: oxyCODONE IR 5 MG TABLET PO PRN ×3 (07:50→23:49)
--- NOTE | 2016-06-26 09:05 | Oncology Progress Note ---
Assessment and Plan (1) Liver metastases Status: Acute Assessment and plan: pathology from 06/24/16 consistent with adenocarcinoma of colon primary - discussed likely stage 4 colon cancer with mets to liver, L4 spine, possible lung and spleen - planned for colonoscopy on Monday. prep today - CEA 999, CA 19 9 level normal and AFP levels pending - patient with no definite symptoms of acute cord compression with no LE weakness, no change in LE sensation, normal rectal tone, and no fallon-anal numbness. - patients urinary retention is more chronic and can be attributed to his prior prostate Ca and BPH - given lack of symptoms managing with decadron for now and plan on radiation oncology evaluation on Monday - patient advised to notify if any change in symptoms discussed - continue oxycodone 15 mg PO Q6h - pain improved - will ask pathology to do additional KOURTNEY mutation analysis testing - prostate cancer likely in remission with PSA < 0.1 - chronic CKD secondary to hydronephrosis stable - appreciate urology assistance thank you for consult. please call with any questions Current Visit: Yes Oncology Subjective PN Interval history: 65 year old male with PMHx of prostate cancer s/p radiation seeds 2012, BPH self caths for last 3 months found to have liver lesions biopsy consistent with adenocarcinoma of likely colon primary. Patient had a colonoscopy in 01/2015 with a hyperplastic polyp. MRI spine concerning for thecal sac compression at L4. Today patient sitting in chair at bedside. States continues to have suprapubic fullness and pain which radiates around his side bilaterally to his back. No definitive back pain. Good urine output when self caths. Having loose stool but not incontinence. Per patient no change in strength of LE and no change in sensation. Has good appetite and ate breakfast clears well. No fevers. Exam - Constitutional Vitals: Period Temp Pulse Resp BP Sys/Matre Pulse Ox Last 24 Hr 97.6 F-98.4 F 74-93 16-21 108-159/67-81 93-98 General appearance: no acute distress - Eye Eye Exam: Present: EOMI - Respiratory Respiratory exam: Present: CTAB - Cardiovascular Cardiovascular exam: Present: RRR - GI/Abdominal GI/Abdominal exam: Present: tenderness (suprapubic and RUQ), soft. Absent: ascites, distended - Extremities Exam Extremities exam: Absent: edema - Neurological Exam Neurological exam: Present: alert, oriented X3, CN II-XII intact, other (no sensation deficit, normal rectal tone). Absent: abnormal gait, altered, motor sensory deficit - Psychiatric Psychiatric exam: Present: normal affect - Skin Skin exam: Present: warm Results - Labs CBC & BMP: 06/20/16 08:28 06/26/16 04:59
[2016-06-26] MEDS: ACETYLCYSTEINE 600 MG CAPSULE PO SCH ×2 (09:25→20:22)
[2016-06-26] MEDS: ASCORBIC ACID 500 MG TABLET PO SCH ×2 (09:25→20:22)
[2016-06-26] MEDS: FERROUS SULFATE 325 MG TABLET PO SCH (09:25)
[2016-06-26] MEDS: METOPROLOL SUCCINATE XL 100 MG TABLET PO SCH (09:26)
[2016-06-26] MEDS: POLYETHYLENE GLYCOL POWDER 17 GM PACK PO SCH (09:27)
--- NOTE | 2016-06-26 10:24 | Urology Progress Note ---
Urology - PN: Subj Interval history: The patient's prostate cancer appears to be well controlled at the present time. His other urological problems will continue to be followed by the urology department at the [facility]. I have asked the patient to take a copy of his reports here with him when he has an appointment there later this month. I will see him again if needed Exam - Constitutional Vitals: Period Temp Pulse Resp BP Sys/Marte Pulse Ox Last 24 Hr 97.6 F-98.4 F 74-93 16-21 108-159/67-81 93-98 Results - Labs CBC & BMP: 06/20/16 08:28 06/26/16 04:59
--- NOTE | 2016-06-26 13:49 | Hospitalist Progress Note ---
Assessment and Plan (1) Mass of multiple sites of liver Status: Acute Assessment and plan: The patient has CEA consistent with metastatic colon cancer. The patient will have colonoscopy tomorrow. The patient's prostate cancer appears to be controlled at this time. The patient will have radiation oncology evaluation of his metastatic bone lesions. Current Visit: Yes Hospitalist: Subjective Interval history: The patient has distended abdomen and elevated CEA consistent with metastatic colon cancer. The patient anticipates colonoscopy tomorrow. Exam - Constitutional Vitals: Period Temp Pulse Resp BP Sys/Marte Pulse Ox Last 24 Hr 97.6 F-98.4 F 64-93 16-21 108-170/67-94 93-98 General appearance: no acute distress - Respiratory Respiratory exam: Present: clear to auscultation bilaterally - Cardiovascular Cardiovascular exam: Present: regular rate and rhythm - GI/Abdominal GI/Abdominal exam: Present: hypoactive bowel sounds Results - Labs CBC & BMP: 06/20/16 08:28 06/26/16 04:59 Lab Results: I have reviewed the past 24 hour labs
[2016-06-26] MEDS: CIPROFLOXACIN 750 MG TABLET PO SCH ×2 (14:42→20:23)
[2016-06-26] MEDS: DEXAMETHASONE 4 MG TABLET PO SCH ×2 (14:42→20:23)
[2016-06-26] MEDS: PANTOPRAZOLE 40 MG TABLET PO SCH (15:46)
[2016-06-26] MEDS ORDERED: POLYETHYLENE GLYCOL POWDER 255 GM BOTTLE PO ONE ×2 (16:00→16:10)
[2016-06-26] MEDS ORDERED: PROMETHAZINE INJ 25 MG in SODIUM CHLORIDE 0.9% 50 ML IV PRN (16:00)
[2016-06-26] MEDS ORDERED: POLYETHYLENE GLYCOL 3350/ELECTROLYTES 4,000 ML BOTTLE PEG ONE (16:00)
[2016-06-26] MEDS ORDERED: POLYETHYLENE GLYCOL 3350/ELECTROLYTES 4,000 ML BOTTLE PO ONE (16:03)
[2016-06-26] MEDS: SIMVASTATIN 20 MG TABLET PO SCH (17:59)
[2016-06-26] MEDS: TAMSULOSIN 0.4 MG CAPSULE PO SCH (17:59)
[2016-06-26] MEDS: MELATONIN 3 MG TABLET PO SCH (20:23)
[2016-06-26] MEDS ORDERED: MAGNESIUM CITRATE 300 ML BOTTLE PO ONE (21:00)
[2016-06-27] MEDS: SODIUM CHLORIDE 0.45% 1,000 ML IV SCH ×2 (03:15→19:20)
[2016-06-27 05:14] LABS: Hematocrit 28.4 VOL% (42.0-52.0); Hemoglobin 9.4 GM/DL (14.0-18.0); Immature Granulocytes % 0.9 %; Immature Granulocytes Absolute 0.12 #; Lymphocytes # 0.8 10*3/uL (1.4-4.0); Lymphocytes % 6.1 % (21.2-54.2); Mean Corpuscular HGB Conc 33.1 GM/DL (32-36); Mean Corpuscular Hemoglobin 32 PG (27-34); Mean Corpuscular Volume 95.9 FL (87-102); Mean Platelet Volume 10.9 FL (9.6-12.0); Monocytes # 0.6 10*3/uL (0.11-0.8); Monocytes % 4.4 % (1.7-12.7); Neutrophils # 11.6 10*3/uL (1.4-7.4); Neutrophils % 88.6 % (38.7-73.9); Platelet Count 261 T/CUMM (130-400); Red Blood Count 2.96 MC/CUMM (3.8-5.5); Red Cell Distribution Width 13.6 % (9.3-17.3)
[2016-06-27 05:51] LABS: Albumin 3.4 G/DL (3.4-5.0); Calcium 8.4 MG/DL (8.5-10.1); Osmolality,Calculated 284.1 MOS/KG (273-304); Potassium 4.3 MMOL/L (3.5-5.1); Total Protein 5.9 G/DL (6.4-8.3)
[2016-06-27] MEDS ORDERED: PROPOFOL 200 MG/20 ML VIAL IV ONE (08:20)
[2016-06-27] MEDS ORDERED: LIDOCAINE 1% 5 ML VIAL ONE (08:20)
--- NOTE | 2016-06-27 08:48 | Operative Note ---
Date of procedure: 06/27/16 Pre-op diagnosis: Prior history of TVA, last colon in 2015, liver metastases ? CRC on path Post-op diagnosis: other (No gross evidence of colon cancer, old post polypectomy site noted in the sigmoid colon which was biopsied as well as lipomatous area appearing in the cecum. We may need to label this liver lesion as a adenocarcinoma of unknown primary.) Procedure: PROCEDURE: Colonoscopy with cold biopsy for pathology REFERRING PHYSICIAN: Keenan Cespedes MD INDICATIONS: Patient with prior history of tubulovillous adenoma, with last colonoscopy in 2014 demonstrating hyperplastic polyps only, recent metastasis noted in the liver status post biopsy demonstrating adenocarcinoma with markers of possible colorectal cancer--recheck at this time to look for evidence of colon cancer the prior H&P was reviewed and interrim changes are as noted: No change from previous GI consultation this admission ENDOSCOPIST: Migue Sotelo MD ENDOSCOPE: [facility] Video 100 System colonoscope COLON PREPARATION: Golytely 4 liters and dulcolax 15 mg po [id number] x 3 ASA CLASS: 4 EXAM: CV: regular rate and rhythm Respiratory: Clear without wheezes Abdominal: active bowel sounds Rectal: Good tone, no fissures or fistulas MEDICATION: Per nursing anesthesia protocol, see their notes PROCEDURE: After discussion of the potential risks and benefits of colonoscopy, the informed consent was obtained, from patient or health care surrogate. The patient was then placed in the left lateral decubitus position where sedation was achieved as noted above. Rectal examination was followed by insertion of the colonoscope. The colonoscope was passed under direct visualization to the cecum. Advancement was facilitated by insertion/withdrawl techniques, abdominal pressure and patient positioning. Once the cecal pole was reached, slow withdrawal was performed with the findings as noted below. The patient tolerated the procedure well and without complication. QUALITY OF PREP: Excellent WITHDRAWL TIME: 7 minutes 35 seconds BIOPSIES: Possible lipoma in the cecum, post polypectomy site in sigmoid PHOTOGRAPHS: Multiple pictures obtained documenting normal-appearing colon, lipomatous area and post polypectomy scar. FINDINGS: The musoca appeared normal in the following regions: rectum, sigmoid colon, descending colon, splenic flexure, transverse colon, hepatic flexure, ascending colon and cecum. There was a 1.5 cm lipomatous appearing area in the cecum that was cold biopsied, a second area that appeared to be an old post-polypectomy scar was noted in the sigmoid also biopsied. Position within the cecum was confirmed by ileocecal valve, appendiceal oriface, and the convergence of folds (crows foot). No colitis, polyp, mass or AVM was noted throughout the colon. No diverticulosis noted. Intubation of the TI was achieved x 5 cm with normal appearence, small internal hemorrhoids were noted on removal of the scope, no retroflex was possible due to the narrow rectal vault. IMPRESSION: No gross evidence of colon cancer, old post polypectomy site noted in the sigmoid colon which was biopsied as well as lipomatous area appearing in the cecum. We may need to label this liver lesion as a adenocarcinoma of unknown primary. RECOMMENDATIONS: High fiber diet Repeat colonosocopy will in 5 years Citrucel 1 tablespoon in 12 oz juice BID: 1 bottle: :11 Follow up by phone for biopsy results in 1-2 weeks by phone Given the lack of appearance of colon cancer, we might have to label this as adenocarcinoma of unknown primary. Migue Sotelo MD COPY TO: Keenan Cespedes MD Anesthesia: MAC Surgeon / Physician: Migue Sotelo Estimated blood loss: minimal Specimens: other (Cecal lipomatous tissue, post polypectomy site in sigmoid) Condition: stable Disposition: post procedure unit ([facility]I. Suite) Results - Labs CBC & BMP: 06/27/16 03:33 06/27/16 03:33 Discharge Plan - Discharge Medications No Action Simvastatin [Zocor] 20 mg PO QPM Pantoprazole Tab [Protonix Tab] 40 mg PO DAILY Zolpidem Tartrate [Ambien] 10 mg PO BEDTIME Tamsulosin [Flomax] 0.4 mg PO QPM hydroCHLOROthiazide [Hydrochlorothiazide] 12.5 mg PO DAILY Ferrous Sulfate [Ferrous Sulfate Cap] 325 mg PO DAILY HYDROcodone/ACETAMIN 5-325 [[place] 5-325] 1 tablet PO Q4H PRN PRN Reason: Pain Melatonin 3 mg PO BEDTIME Aspirin EC Tab 81 mg PO DAILY Metoprolol Succinate 50 mg PO DAILY Ascorbic Acid 1,000 mg PO BID Albuterol Inhaler [Proventil Inhaler] 1 puff INH BID PRN PRN Reason: Shortness Of Breath/Wheezing Phenazopyridine HCl [Azo Urinary Pain Relief] 97.5 mg PO DAILY PRN PRN Reason: UTI Sildenafil Citrate [Viagra] 100 mg PO DAILY PRN PRN Reason: Erectile Dysfunction - Follow Up or Referral - Forms/Instructions
--- NOTE | 2016-06-27 08:51 | Gastrointestinal Progress Note ---
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 We should be able to distinguish between these 2 potential lesions of the liver with a tagged red blood cell scan which showed showing accumulation of RBC contrast in hemangiomas if these are identified. I suspect this patient may have a discrete lesion or potentially several but that the majority of the "innumerable lesions" are likely metastatic cancer of some type. I think will be helpful to have a biopsy demonstrating that they were consistent with prostate cancer, as opposed to a secondary metastasis from another site versus primary hepatocellular carcinoma. If the tagged red blood cell scan is negative for evidence of hemangiomas with probably be safe in obtaining a liver biopsy of 1 of the larger lesions to make the diagnosis of metastatic cancer. 06/22/16--the patient did have a hemangioma study done yesterday which showed no convincing evidence of hemangiomas in the liver. CT scan demonstrated numerous hypoechoic lesions and so possibly random biopsy may show if there was cancer in the liver however I do not believe this will be the case. Patient's liver function tests are normal and if there was diffuse involvement of the liver the alkaline phosphatase and bilirubin likely would be higher. As well as the transaminases. These were all normal. The echotexture may be increased for other reasons such as fatty infiltration. We will try and obtain a fine-needle biopsy of the largest lesion which is 2.3 cm in size through interventional radiology. This could be done with either CT scan or ultrasound. 06/23/16--Awaiting pathology from the liver biopsy specimen taken today. This should be back shortly. LFTs remain entirely normal. 06/24/16--The pathology is still pending at this time. The patient is likely going to be discharged in the next 48 hours. I can certainly follow this up as an outpatient once the biopsy results are available. 06/27/16--This patient was put on the colonoscopy list for colonoscopy this morning due to the pathology from the liver demonstrating possible adenocarcinoma from colon primary. Patient previously undergone colonoscopy back in 2014 so this seemed unlikely. Repeat colonoscopy demonstrated the following: No gross evidence of colon cancer, old post polypectomy site noted in the sigmoid colon which was biopsied as well as lipomatous area appearing in the cecum. We may need to label this liver lesion as a adenocarcinoma of unknown primary. 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 The colon is essentially ruled out as a site of potential cancer at this point. 06/22/16--repeat colonoscopy in 5 years from last i.e. January 2020, should the patient be well enough to undergo this procedure. 06/23/16--repeat colonoscopy in January 2020 06/24/16--Repeat colonoscopy as noted above. 06/27/16--Repeat colonoscopy now in June 2021 Current Visit: Yes (3) History of esophageal stricture Status: Acute Assessment and plan: The patient was having some nausea and vomiting earlier secondary to abdominal pain caused by the hydronephrosis but now feels great deal better. Acid blockade would likely be helpful over time. His nausea continues to get better after catheterization. No need for dilation in the short-term as he is really not getting food stuck at this point. EGD was last done approximately [address] Meng. Suggest daily Protonix. 06/22/16--No further upper endoscopy desired. The patient is not having any dysphagia at this time and does not feel any acid reflux. Continue daily Protonix. 06/23/16--No further problems. 06/24/16--no further problems 06/27/16-- No further problems, in fact the patient can be discharged from my standpoint Current Visit: Yes (4) Abnormal weight loss Status: Acute Assessment and plan: Continue to monitor this. This is likely secondary to his metastatic prostate cancer with underlying disability, and multiple medical problems. 06/22/16--Continue to monitor the weight is a patient is eating better now that his bladder is emptying better. 06/23/16--Appetite continues to be a problem with this patient. We may need to consider Remeron versus Marinol in the near future. 06/24/16--we will continue to use Protonix. This patient may respond to Remeron or Marinol us if needed in the future if he does not respond to the Protonix in the next 2 weeks. 06/27/16--The patient needs treatment of his metastatic adenocarcinoma. This may help with his abnormal weight loss. Current Visit: Yes Gastroenterology - PN: Subj Interval history: No major complaints. Did well with the prep Exam (Progress Note) - Constitutional Vitals: Period Temp Pulse Resp BP Sys/Marte Pulse Ox Last 24 Hr 97.2 F-98.3 F 58-73 16-20 142-175/78-94 96-98 General appearance: no acute distress - Head Head exam: Present: normocephalic, atraumatic - Eye Eye exam: Present: EOMI Pupils: Present: DARIAN - Respiratory Respiratory exam: Present: clear to auscultation bilaterally. Absent: rhonchi, stridor, wheezes - Cardiovascular Cardiovascular exam: Present: regular rate and rhythm - GI/Abdominal GI/Abdominal exam: Present: normal bowel sounds - Back Exam Back exam: Present: normal inspection - Neurological Exam Neurological exam: Present: alert, oriented X3 - Psychiatric Psychiatric exam: Present: normal affect, normal mood - Skin Skin exam: Present: warm Results - Labs CBC & BMP: 06/27/16 03:33 06/27/16 03:33
--- NOTE | 2016-06-27 09:01 | Anesthesia Post-Op ---
Anesthesia Post OP - Post Ansesthetic Evaluation Patient seen in post op: Yes Resp: within normal limits CV: within normal limits Mental: within normal limits Temp: within normal limits [id number]: within normal limits Nausea and Vomiting: within normal limits Pain: within normal limits
[2016-06-27] MEDS: FERROUS SULFATE 325 MG TABLET PO SCH (09:59)
[2016-06-27] MEDS: ASCORBIC ACID 500 MG TABLET PO SCH ×2 (09:59→20:55)
[2016-06-27] MEDS: METOPROLOL SUCCINATE XL 100 MG TABLET PO SCH (10:00)
[2016-06-27] MEDS: DEXAMETHASONE 4 MG TABLET PO SCH ×2 (10:01→20:56)
[2016-06-27] MEDS: oxyCODONE IR 5 MG TABLET PO PRN ×3 (10:01→22:32)
[2016-06-27] MEDS: ACETYLCYSTEINE 600 MG CAPSULE PO SCH ×2 (10:01→20:55)
[2016-06-27] MEDS: OXYBUTYNIN 5 MG TABLET PO PRN (10:01)
[2016-06-27] MEDS: CIPROFLOXACIN 750 MG TABLET PO SCH ×2 (10:01→20:56)
[2016-06-27] MEDS: POLYETHYLENE GLYCOL POWDER 17 GM PACK PO SCH (10:02)
--- NOTE | 2016-06-27 13:23 | Hospitalist Progress Note ---
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 The patient's prostate cancer appears to be controlled at this time. The patient will have radiation oncology evaluation of his metastatic bone lesions. Current Visit: Yes Hospitalist: Subjective Interval history: Mr. valencia had colonoscopy this morning. He tolerated the procedure well. No colonic lesions were found. The patient will have bone scan today. The patient does not complain of shortness of breath or palpitations. Exam - Constitutional Vitals: Period Temp Pulse Resp BP Sys/Marte Pulse Ox Last 24 Hr 96.8 F-98.3 F 48-73 16-20 142-190/76-92 96-100 General appearance: no acute distress - Respiratory Respiratory exam: Present: clear to auscultation bilaterally - Cardiovascular Cardiovascular exam: Present: regular rate and rhythm - GI/Abdominal GI/Abdominal exam: Present: hypoactive bowel sounds Results - Labs CBC & BMP: 06/27/16 03:33 06/27/16 03:33 Lab Results: I have reviewed the past 24 hour labs
--- NOTE | 2016-06-27 14:29 | Nuclear Medicine Report ---
NM bone scan whole body Indication: Metastatic disease Findings: Patient was injected with 30.0 millicuries of technetium 99m MDP intravenously. Total body anterior posterior images were obtained. There is normal axial and appendicular osseous uptake. No abnormally increased or decreased areas of activity are demonstrated. There is increased activity in both renal collecting systems to the level of the bladder. Normal amount of soft tissue uptake is seen. Impression: No evidence of osseous metastatic disease demonstrated. Increased activity in the collecting systems consistent with severe bilateral renal obstruction. PROCEDURE INTERPRETED AT [facility] DEPARTMENT OF RADIOLOGY Final Report Signed by: Dr. Rodrick Kang
[2016-06-27] MEDS: PANTOPRAZOLE 40 MG TABLET PO SCH (16:42)
--- NOTE | 2016-06-27 16:47 | Oncology Consult Note ---
Assessment and Plan - Time spent with patient Time spent with patient: Greater than 30 minutes (1) Mass of multiple sites of liver Status: Acute Assessment and plan: We will evaluate this and work this up for cancer of unknown primary. Cystoscopy was done in the morning. Hopefully we could get GI to do an upper endoscopy later tomorrow or the following morning. Patient appears to be in good condition for discharge once his full workup is complete. Current Visit: Yes (2) Urinary obstruction Status: Acute Current Visit: Yes (3) Bladder mass Status: Acute Current Visit: Yes (4) History of prostate cancer Status: Acute Current Visit: Yes (5) Abnormal weight loss Status: Acute Current Visit: Yes History of Present Illness History of present illness: Mr. Valencia is a 65 year old male with a history of prostate cancer that has completed radiation therapy who was admitted with abdominal pain and was found to have numerous liver lesions and possible splenic lesions. There was some initial concern for bony involvement of his lower spine and sacrum but a bone scan and CT scan were negative in these areas. Biopsy of 1 of the liver lesions return back as adenocarcinoma consistent with colonic primary. Lower endoscopy done this morning was negative. His CEA level is elevated but his CA- 19-9 level was normal. His only complaint today is of abdominal fullness and distention. I had a lengthy discussion today with Mr. valencia and his family about his diagnosis and that we need to work this up as a cancer of unknown primary. He is having a cystoscopy done tomorrow morning due to a mass seen on CT scan within his bladder. We will also ask GI for an upper endoscopy. If no definitive primary is found we will consider this a tumor of likely colonic primary and treat as such. This would overlap with numerous GI malignancies. He would need a PET scan as an outpatient. Patient is debating whether he would like his oncology follow-up done here [place] or at the [facility] in [place]. Home Medications Medication Instructions Recorded Confirmed Type Ferrous Sulfate [Ferrous Sulfate 325 mg PO DAILY 01/23/15 06/20/16 History Cap] Pantoprazole Tab [Protonix Tab] 40 mg PO DAILY 01/23/15 06/20/16 History Simvastatin [Zocor] 20 mg PO QPM 01/23/15 06/20/16 History Tamsulosin [Flomax] 0.4 mg PO QPM 01/23/15 06/20/16 History Zolpidem Tartrate [Ambien] 10 mg PO BEDTIME 01/23/15 06/20/16 History hydroCHLOROthiazide 12.5 mg PO DAILY 01/23/15 06/20/16 History [Hydrochlorothiazide] Albuterol Inhaler [Proventil 1 puff INH BID PRN 06/19/16 06/20/16 History Inhaler] Ascorbic Acid 1,000 mg PO BID 06/19/16 06/20/16 History Aspirin EC Tab 81 mg PO DAILY 06/19/16 06/20/16 History HYDROcodone/ACETAMIN 5-325 [[place] 1 tablet PO Q4H PRN 06/19/16 06/20/16 History 5-325] Melatonin 3 mg PO BEDTIME 06/19/16 06/20/16 History Metoprolol Succinate 50 mg PO DAILY 06/19/16 06/20/16 History Phenazopyridine HCl [Azo Urinary 97.5 mg PO DAILY PRN 06/19/16 06/20/16 History Pain Relief] Sildenafil Citrate [Viagra] 100 mg PO DAILY PRN 06/19/16 06/20/16 History Allergies Allergy/AdvReac Type Severity Reaction Status Date / Time No Known Allergies Allergy Verified 01/23/15 14:52 Medical,Surgical,& Family Hx - Medical History Cardio: History of: Hypertension Neurology: History of: TIA No history of: Seizures Renal: History of: Renal Failure Genitourinary: History of: Recurring Urinary Tract Infections, Problems ( self catheterizes due to inability to void related to prostate CA) Gastrointestinal: History of: GI Problems (anemia) Other: History of: Cancer (prostate) - Surgical History Abdominal Surgeries: Surgical HX of: Colonoscopy Reproductive Surgeries: Surgical HX of;: Prostate Surgery - Family History Family History: Reports;: Family Cancer - Social History Smoking Status: Never smoker Frequency of Alcohol Use: None Type of Drug Use: None 12 point system: reviewed and no additional remarkable complaints except as stated - Constitutional Constitutional: Present: fatigue - Gastrointestinal Gastrointestinal: Present: abdominal pain Exam - Constitutional Vitals: Period Temp Pulse Resp BP Sys/Marte Pulse Ox Last 24 Hr 96.8 F-98.2 F 48-73 16-20 142-190/76-92 96-100 General appearance: normal weight, no acute distress - Head Head Exam: Present: normocephalic, atraumatic - Eye Eye Exam: Present: EOMI Pupils: Present: PERRL - ENT ENT exam: Present: normal exam, normal oropharynx - Neck Neck exam: Absent: lymphadenopathy, thyromegaly - Respiratory Respiratory exam: Present: CTAB. Absent: wheezes - Cardiovascular Cardiovascular exam: Present: RRR. Absent: JVD - GI/Abdominal GI/Abdominal exam: Present: soft. Absent: ascites, distended, mass - Neurological Exam Neurological exam: Present: alert, oriented X3 - Psychiatric Psychiatric exam: Present: normal affect, normal mood Results - Labs CBC & BMP: 06/27/16 03:33 06/27/16 03:33 Lab Results: I have reviewed the past 24 hour labs
--- NOTE | 2016-06-27 17:37 | Urology Progress Note ---
Urology - PN: Subj Interval history: Patient discussed with Dr. Patel today. Biopsy of the liver suggested metastatic colon cancer but no cancer was found on colonoscopy. I will cystoscope the patient tomorrow to look for a bladder origin Exam - Constitutional Vitals: Period Temp Pulse Resp BP Sys/Marte Pulse Ox Last 24 Hr 96.8 F-98.2 F 48-73 16-20 142-190/76-92 96-100 Results - Labs CBC & BMP: 06/27/16 03:33 06/27/16 03:33
[2016-06-27] MEDS: TAMSULOSIN 0.4 MG CAPSULE PO SCH (18:14)
[2016-06-27] MEDS: SIMVASTATIN 20 MG TABLET PO SCH (18:14)
[2016-06-27] MEDS: MELATONIN 3 MG TABLET PO SCH (20:56)
[2016-06-28] MEDS ORDERED: OXYBUTYNIN XL 15 MG TABLET PO ONE (09:00)
--- NOTE | 2016-06-28 11:28 | Hospitalist Progress Note ---
Assessment and Plan (1) Mass of multiple sites of liver Status: Acute Assessment and plan: The patient has CEA consistent with metastatic adenocarcinoma. The patient's prostate cancer appears to be controlled at this time. The patient will have cystoscopy today. Current Visit: Yes Hospitalist: Subjective Interval history: The patient is well this morning. He had no new events overnight. The patient anticipates cystoscopy with Dr. Thurston today. I coordinated care with Dr. Naqvi today. Exam - Constitutional Vitals: Period Temp Pulse Resp BP Sys/Marte Pulse Ox Last 24 Hr 96.3 F-98.2 F 55-72 16-20 142-172/68-88 95-99 - Respiratory Respiratory exam: Present: clear to auscultation bilaterally - Cardiovascular Cardiovascular exam: Present: regular rate and rhythm - GI/Abdominal GI/Abdominal exam: Present: normal bowel sounds Results - Labs CBC & BMP: 06/27/16 03:33 06/27/16 03:33 Lab Results: I have reviewed the past 24 hour labs
[2016-06-28] MEDS: METOPROLOL SUCCINATE XL 100 MG TABLET PO SCH (11:30)
[2016-06-28] MEDS: DEXAMETHASONE 4 MG TABLET PO SCH ×2 (11:30→20:25)
[2016-06-28] MEDS: CIPROFLOXACIN 750 MG TABLET PO SCH ×2 (12:21→20:25)
[2016-06-28] MEDS: ACETYLCYSTEINE 600 MG CAPSULE PO SCH ×2 (12:22→20:24)
[2016-06-28] MEDS: ASCORBIC ACID 500 MG TABLET PO SCH ×2 (12:22→20:24)
[2016-06-28] MEDS: POLYETHYLENE GLYCOL POWDER 17 GM PACK PO SCH (12:22)
[2016-06-28] MEDS: FERROUS SULFATE 325 MG TABLET PO SCH (12:22)
--- NOTE | 2016-06-28 13:59 | Gastrointestinal Progress Note ---
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 We should be able to distinguish between these 2 potential lesions of the liver with a tagged red blood cell scan which showed showing accumulation of RBC contrast in hemangiomas if these are identified. I suspect this patient may have a discrete lesion or potentially several but that the majority of the "innumerable lesions" are likely metastatic cancer of some type. I think will be helpful to have a biopsy demonstrating that they were consistent with prostate cancer, as opposed to a secondary metastasis from another site versus primary hepatocellular carcinoma. If the tagged red blood cell scan is negative for evidence of hemangiomas with probably be safe in obtaining a liver biopsy of 1 of the larger lesions to make the diagnosis of metastatic cancer. 06/22/16--the patient did have a hemangioma study done yesterday which showed no convincing evidence of hemangiomas in the liver. CT scan demonstrated numerous hypoechoic lesions and so possibly random biopsy may show if there was cancer in the liver however I do not believe this will be the case. Patient's liver function tests are normal and if there was diffuse involvement of the liver the alkaline phosphatase and bilirubin likely would be higher. As well as the transaminases. These were all normal. The echotexture may be increased for other reasons such as fatty infiltration. We will try and obtain a fine-needle biopsy of the largest lesion which is 2.3 cm in size through interventional radiology. This could be done with either CT scan or ultrasound. 06/23/16--Awaiting pathology from the liver biopsy specimen taken today. This should be back shortly. LFTs remain entirely normal. 06/24/16--The pathology is still pending at this time. The patient is likely going to be discharged in the next 48 hours. I can certainly follow this up as an outpatient once the biopsy results are available. 06/27/16--This patient was put on the colonoscopy list for colonoscopy this morning due to the pathology from the liver demonstrating possible adenocarcinoma from colon primary. Patient previously undergone colonoscopy back in 2014 so this seemed unlikely. Repeat colonoscopy demonstrated the following: No gross evidence of colon cancer, old post polypectomy site noted in the sigmoid colon which was biopsied as well as lipomatous area appearing in the cecum. We may need to label this liver lesion as a adenocarcinoma of unknown primary. 06/28/16--The patient had previously had upper endoscopy done 2010 which did not show gross evidence of cancer, dilation done at that time because of dysphagia. The patient does have adenocarcinoma with a high CEA level in the liver. The colonoscopy done yesterday on gross evidence of a primary. was negative for biopsies taken of the 2 lesions seen (lipoma and scarring in the sigmoid) proved to be benign as well. Currently the patient is doing with Dr. Thurston undergoing cystoscopy. On the chance of this is negative for a source for the metastases I will go ahead and arrange for upper endoscopy to occur tomorrow. 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 The colon is essentially ruled out as a site of potential cancer at this point. 06/22/16--repeat colonoscopy in 5 years from last i.e. January 2020, should the patient be well enough to undergo this procedure. 06/23/16--repeat colonoscopy in January 2020 06/24/16--Repeat colonoscopy as noted above. 06/27/16--Repeat colonoscopy now in June 2021 Current Visit: Yes (3) History of esophageal stricture Status: Acute Assessment and plan: The patient was having some nausea and vomiting earlier secondary to abdominal pain caused by the hydronephrosis but now feels great deal better. Acid blockade would likely be helpful over time. His nausea continues to get better after catheterization. No need for dilation in the short-term as he is really not getting food stuck at this point. EGD was last done approximately [address] Meng. Suggest daily Protonix. 06/22/16--No further upper endoscopy desired. The patient is not having any dysphagia at this time and does not feel any acid reflux. Continue daily Protonix. 06/23/16--No further problems. 06/24/16--no further problems 06/27/16-- No further problems, in fact the patient can be discharged from my standpoint 06/28/16--we will arrange for repeat upper endoscopy tomorrow but will likely not require redilation. Continue Protonix for the present time. Current Visit: Yes (4) Abnormal weight loss Status: Acute Assessment and plan: Continue to monitor this. This is likely secondary to his metastatic prostate cancer with underlying disability, and multiple medical problems. 06/22/16--Continue to monitor the weight is a patient is eating better now that his bladder is emptying better. 06/23/16--Appetite continues to be a problem with this patient. We may need to consider Remeron versus Marinol in the near future. 06/24/16--we will continue to use Protonix. This patient may respond to Remeron or Marinol us if needed in the future if he does not respond to the Protonix in the next 2 weeks. 06/27/16--The patient needs treatment of his metastatic adenocarcinoma. This may help with his abnormal weight loss. 06/28/16--We continue with the workup at this time. Current Visit: Yes Gastroenterology - PN: Subj Interval history: Unfortunately, the patient is often cystoscopy at the time that I was able to come. I have discussed the management with his who remained in the room, the plan currently is to perform upper endoscopy tomorrow morning if the cystoscopy is negative for cancer site. I am going to go ahead and enter the orders now to make sure these are available in case the cystoscopy is unrevealing Exam (Progress Note) - Constitutional Vitals: Period Temp Pulse Resp BP Sys/Marte Pulse Ox Last 24 Hr 96.3 F-98.2 F 55-72 18-20 142-172/68-88 95-99 Exam: The patient is not available for examination, currently down cystoscopy. Results - Labs CBC & BMP: 06/27/16 03:33 06/27/16 03:33
[2016-06-28] MEDS ORDERED: PROPOFOL 200 MG/20 ML VIAL IV ONE (14:01)
[2016-06-28] MEDS ORDERED: ONDANSETRON 4 MG/2 ML VIAL ONE (14:01)
[2016-06-28] MEDS ORDERED: LIDOCAINE 1% 5 ML VIAL ONE (14:01)
--- NOTE | 2016-06-28 14:47 | Operative Note ---
Date of procedure: 06/28/16 Pre-op diagnosis: Cancer of the prostate Post-op diagnosis: same Procedure: Under an adequate preop medication including antibiotics the patient was taken to the cystoscopy room placed on table in supine position. General anesthesia was administered and the patient was turned into the lithotomy position prepped and draped in usual manner a timeout procedure was done. The cystourethroscope was introduced under direct vision. The anterior urethra was normal the prostatic urethra showed shaggy chronic anterior and there was a high bladder neck with a contracture was very difficult to get the scope into the bladder. I had to go to a 19 [place] scope was finally able to get this into the bladder after passing a guidewire into the bladder to make sure that I could adequately identify the urethra. The bladder neck and prostatic urethra area showed shaggy necrotic tissue. 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 I was not able to get the biopsy forceps through the small scope and the larger scope was then passed into the prostatic urethra and transurethral biopsies of the prostatic area were done. A 16 coud catheter was then passed into the bladder irrigated clear left on gravity drainage. The patient tolerated procedure well and returned to the recovery room in good condition. Anesthesia: SAGEA Surgeon / Physician: Bryan Thurston Estimated blood loss: none Specimens: other (Transurethral prostate biopsy) Condition: stable Disposition: floor Results - Labs CBC & BMP: 06/27/16 03:33 06/27/16 03:33 Discharge Plan - Discharge Medications No Action Simvastatin [Zocor] 20 mg PO QPM Pantoprazole Tab [Protonix Tab] 40 mg PO DAILY Zolpidem Tartrate [Ambien] 10 mg PO BEDTIME Tamsulosin [Flomax] 0.4 mg PO QPM hydroCHLOROthiazide [Hydrochlorothiazide] 12.5 mg PO DAILY Ferrous Sulfate [Ferrous Sulfate Cap] 325 mg PO DAILY HYDROcodone/ACETAMIN 5-325 [Gilbert 5-325] 1 tablet PO Q4H PRN PRN Reason: Pain Melatonin 3 mg PO BEDTIME Aspirin EC Tab 81 mg PO DAILY Metoprolol Succinate 50 mg PO DAILY Ascorbic Acid 1,000 mg PO BID Albuterol Inhaler [Proventil Inhaler] 1 puff INH BID PRN PRN Reason: Shortness Of Breath/Wheezing Phenazopyridine HCl [Azo Urinary Pain Relief] 97.5 mg PO DAILY PRN PRN Reason: UTI Sildenafil Citrate [Viagra] 100 mg PO DAILY PRN PRN Reason: Erectile Dysfunction - Follow Up or Referral - Forms/Instructions
--- NOTE | 2016-06-28 15:00 | Anesthesia Post-Op ---
Anesthesia Post OP - Post Ansesthetic Evaluation Patient seen in post op: Yes Resp: within normal limits CV: within normal limits Mental: within normal limits Temp: within normal limits [id number]: within normal limits Nausea and Vomiting: within normal limits Pain: within normal limits
[2016-06-28] MEDS ORDERED: fentaNYL 100 MCG/2 ML VIAL ONE (15:02)
[2016-06-28] MEDS ORDERED: MIDAZOLAM 2 MG/2 ML VIAL ONE (15:02)
[2016-06-28] MEDS ORDERED: SEVOFLURANE 1 UNIT/15 MINUTE INH ONE (15:02)
[2016-06-28] MEDS: PANTOPRAZOLE 40 MG TABLET PO SCH (16:00)
[2016-06-28] MEDS: oxyCODONE IR 5 MG TABLET PO PRN ×2 (16:01→21:47)
[2016-06-28] MEDS: SODIUM CHLORIDE 0.45% 1,000 ML IV SCH (16:02)
[2016-06-28] MEDS: SIMVASTATIN 20 MG TABLET PO SCH (18:10)
[2016-06-28] MEDS: TAMSULOSIN 0.4 MG CAPSULE PO SCH (18:10)
[2016-06-28] MEDS: MELATONIN 3 MG TABLET PO SCH (20:25)
[2016-06-28] MEDS: OXYBUTYNIN 5 MG TABLET PO PRN (20:27)
[2016-06-29] MEDS: OXYBUTYNIN 5 MG TABLET PO PRN ×3 (00:10→20:29)
[2016-06-29] MEDS: SODIUM CHLORIDE 0.45% 1,000 ML IV SCH ×2 (04:27→18:08)
[2016-06-29] MEDS: oxyCODONE IR 5 MG TABLET PO PRN ×3 (07:28→23:42)
--- NOTE | 2016-06-29 07:36 | Urology Progress Note ---
Urology - PN: Subj Interval history: The patient urine is clear this morning but his Cook was obstructed last night and had to be replaced. Cystoscopy was done yesterday and this was very difficult because of his previous radiation. Biopsies were taken and result of this is pending Exam - Constitutional Vitals: Period Temp Pulse Resp BP Sys/Marte Pulse Ox Last 24 Hr 96.1 F-98.5 F 50-83 16-20 126-181/69-93 94-100 Results - Labs CBC & BMP: 06/27/16 03:33 06/27/16 03:33
--- NOTE | 2016-06-29 08:09 | Oncology Progress Note ---
Assessment and Plan (1) Urinary obstruction Status: Acute Current Visit: Yes (2) Bladder mass Status: Acute Current Visit: Yes (3) History of prostate cancer Status: Acute Current Visit: Yes (4) Abnormal weight loss Status: Acute Current Visit: Yes Oncology Subjective PN Interval history: Mr. valencia underwent cystoscopy yesterday with no obvious malignant findings. He is scheduled to have an upper endoscopy today to rule out an upper GI tumor. Once this is completed there is no further oncology workup that on the done in the hospital. If he is fit for discharge from a medicine and urology standpoint , I can see him in clinic next week to further workup his metastatic tumor. He is still debating if he would like to get his cancer care at the [facility] by have strongly encouraged him to consider doing it here since we are a closer location and he will need frequent and continuous follow-up. I also explained to him how serious his diagnosis is that he essentially has a stage IV cancer of unknown primary at this time. The prognosis with this is usually a life expectancy of 6-12 months. He will most definitely need chemotherapy. Before I began treatment I would like to obtain a PET scan or at least have one in place in the next 3-4 weeks. When I see him in clinic next week him and I will make a plan about beginning chemotherapy. If he wants to have his care at the [facility] I could then send the referral of this exam from that visit. Exam - Constitutional Vitals: Period Temp Pulse Resp BP Sys/Marte Pulse Ox Last 24 Hr 96.1 F-98.5 F 50-83 16-20 126-181/69-93 94-100 General appearance: normal weight, no acute distress - Head Head Exam: Present: normocephalic, atraumatic - Eye Eye Exam: Present: EOMI Pupils: Present: PERRL - ENT ENT exam: Present: normal exam, normal oropharynx - Neck Neck exam: Absent: lymphadenopathy, thyromegaly - Respiratory Respiratory exam: Present: CTAB. Absent: wheezes - Cardiovascular Cardiovascular exam: Present: RRR. Absent: JVD - GI/Abdominal GI/Abdominal exam: Present: distended, soft. Absent: firm, mass Results - Labs CBC & BMP: 06/27/16 03:33 06/27/16 03:33 Lab Results: I have reviewed the past 24 hour labs
--- NOTE | 2016-06-29 08:57 | Gastrointestinal Progress Note ---
Assessment and Plan (1) Mass of multiple sites of liver Status: Deleted Assessment and plan: The patient likely has metastatic prostate cancer to the liver, a [facility] seem to show what look like hemangiomas in the past. We should be able to distinguish between these 2 potential lesions of the liver with a tagged red blood cell scan which showed showing accumulation of RBC contrast in hemangiomas if these are identified. I suspect this patient may have a discrete lesion or potentially several but that the majority of the "innumerable lesions" are likely metastatic cancer of some type. I think will be helpful to have a biopsy demonstrating that they were consistent with prostate cancer, as opposed to a secondary metastasis from another site versus primary hepatocellular carcinoma. If the tagged red blood cell scan is negative for evidence of hemangiomas with probably be safe in obtaining a liver biopsy of 1 of the larger lesions to make the diagnosis of metastatic cancer. 06/22/16--the patient did have a hemangioma study done yesterday which showed no convincing evidence of hemangiomas in the liver. CT scan demonstrated numerous hypoechoic lesions and so possibly random biopsy may show if there was cancer in the liver however I do not believe this will be the case. Patient's liver function tests are normal and if there was diffuse involvement of the liver the alkaline phosphatase and bilirubin likely would be higher. As well as the transaminases. These were all normal. The echotexture may be increased for other reasons such as fatty infiltration. We will try and obtain a fine-needle biopsy of the largest lesion which is 2.3 cm in size through interventional radiology. This could be done with either CT scan or ultrasound. 06/23/16--Awaiting pathology from the liver biopsy specimen taken today. This should be back shortly. LFTs remain entirely normal. 06/24/16--The pathology is still pending at this time. The patient is likely going to be discharged in the next 48 hours. I can certainly follow this up as an outpatient once the biopsy results are available. 06/27/16--This patient was put on the colonoscopy list for colonoscopy this morning due to the pathology from the liver demonstrating possible adenocarcinoma from colon primary. Patient previously undergone colonoscopy back in 2014 so this seemed unlikely. Repeat colonoscopy demonstrated the following: No gross evidence of colon cancer, old post polypectomy site noted in the sigmoid colon which was biopsied as well as lipomatous area appearing in the cecum. We may need to label this liver lesion as a adenocarcinoma of unknown primary. 06/28/16--The patient had previously had upper endoscopy done 2010 which did not show gross evidence of cancer, dilation done at that time because of dysphagia. The patient does have adenocarcinoma with a high CEA level in the liver. The colonoscopy done yesterday on gross evidence of a primary. was negative for biopsies taken of the 2 lesions seen (lipoma and scarring in the sigmoid) proved to be benign as well. Currently the patient is doing with Dr. Thurston undergoing cystoscopy. On the chance of this is negative for a source for the metastases I will go ahead and arrange for upper endoscopy to occur tomorrow. 06/29/16--This proved to be adenocarcinoma of unknown primary. The cystoscopy showed some ragged tissue in the urethral area consistent with old cancer possibly treated with the patient's PSA level being as low as it is this seems unlikely as a source of the wrist radiation scarring noted here. We did upper endoscopy today in order to look for evidence of upper adenocarcinoma in the esophagus/stomach/duodenum. Stomach did appear mildly irritated with some thickened folds and I biopsied this but is likely stasis gastritis or Helicobacter pylori. There was some gastroparesis present. Biopsies are pending at this time there was no classic mass-effect as usually seen with cancer. We might consider adding a small bowel follow-through in order to view the rest of the small bowel. I will go ahead and order this. 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 The colon is essentially ruled out as a site of potential cancer at this point. 06/22/16--repeat colonoscopy in 5 years from last i.e. January 2020, should the patient be well enough to undergo this procedure. 06/23/16--repeat colonoscopy in January 2020 06/24/16--Repeat colonoscopy as noted above. 06/27/16--Repeat colonoscopy now in June 2021 Current Visit: Yes (3) History of esophageal stricture Status: Acute Assessment and plan: The patient was having some nausea and vomiting earlier secondary to abdominal pain caused by the hydronephrosis but now feels great deal better. Acid blockade would likely be helpful over time. His nausea continues to get better after catheterization. No need for dilation in the short-term as he is really not getting food stuck at this point. EGD was last done approximately [address] Meng. Suggest daily Protonix. 06/22/16--No further upper endoscopy desired. The patient is not having any dysphagia at this time and does not feel any acid reflux. Continue daily Protonix. 06/23/16--No further problems. 06/24/16--no further problems 06/27/16-- No further problems, in fact the patient can be discharged from my standpoint 06/28/16--we will arrange for repeat upper endoscopy tomorrow but will likely not require redilation. Continue Protonix for the present time. 06/29/16--No further problems with dysphagia, we did not redilated the patient today. Current Visit: Yes (4) Abnormal weight loss Status: Acute Assessment and plan: Continue to monitor this. This is likely secondary to his metastatic prostate cancer with underlying disability, and multiple medical problems. 06/22/16--Continue to monitor the weight is a patient is eating better now that his bladder is emptying better. 06/23/16--Appetite continues to be a problem with this patient. We may need to consider Remeron versus Marinol in the near future. 06/24/16--we will continue to use Protonix. This patient may respond to Remeron or Marinol us if needed in the future if he does not respond to the Protonix in the next 2 weeks. 06/27/16--The patient needs treatment of his metastatic adenocarcinoma. This may help with his abnormal weight loss. 06/28/16--We continue with the workup at this time. 06/29/16--Patient did have some gastroparesis noted on today's EGD, we will start the patient on low-dose of Reglan elixir to see if this helps. Small bowel follow-through is pending. Current Visit: Yes Gastroenterology - PN: Subj Interval history: No new complaints, still with the lower abdominal pain radiating through to the back. He does not have any difficulty with swallowing and this was reviewed again today. Exam (Progress Note) - Constitutional Vitals: Period Temp Pulse Resp BP Sys/Mrate Pulse Ox Last 24 Hr 96.1 F-98.5 F 50-83 16-20 126-181/69-93 94-100 General appearance: mild distress - Eye Eye exam: Present: EOMI Pupils: Present: DARIAN - Respiratory Respiratory exam: Present: clear to auscultation bilaterally. Absent: wheezes - Cardiovascular Cardiovascular exam: Present: regular rate and rhythm - GI/Abdominal GI/Abdominal exam: Present: normal bowel sounds, tenderness (Mild periumbilical) , soft. Absent: distended, rebound - Neurological Exam Neurological exam: Present: alert, oriented X3, CN II-XII intact. Absent: motor sensory deficit - Psychiatric Psychiatric exam: Present: normal affect, normal mood - Skin Skin exam: Present: warm Results - Labs CBC & BMP: 06/27/16 03:33 06/27/16 03:33 Specialty Discharge - Follow Up or Referrals Follow up with: Jm Reza MD [Physician] - 07/06/16 10:00 am
--- NOTE | 2016-06-29 09:15 | Operative Note ---
Date of procedure: 06/29/16 Pre-op diagnosis: Patient with adenocarcinoma of unknown primary, check gastric/ duodenal Post-op diagnosis: other (Evidence of gastroparesis in the stomach with retained food in the fundus. Mild stasis gastritis with fold thickening and erythema noted in the fundus greater than antrum, biopsies pending to rule out gastritis and adenocarcinoma. Prepyloric erythema and probable intestinal metaplasia changes also biopsied. Normal-appearing esophagus and duodenum) Procedure: PROCEDURE: Esophagogastroduodenoscopy (EGD) and cold biopsy for pathology REFERRING PHYSICIAN: Dr. Jm Reza, and Dr. Keenan Cespedes INDICATIONS: Adenocarcinoma of unknown primary, rule out stomach and duodenum as potential sources. The prior H&P was reviewed and interrim changes are as noted: No change from GI consultation this admission ENDOSCOPIST: Migue Sotelo MD ENDOSCOPE: Olympus Video 100 System upper endoscope ASA CLASS: 4 EXAM: CV: regular rate and rhythm respiratory: Clear without wheezes abdominal: active bowel sounds MEDICATION: Per nursing anesthesia protocol, see their notes PROCEDURE: After discussion of the potential risks and benefits of upper endoscopy, the informed consent was obtained. The patient was then placed in the left lateral decubitus position where sedation was achieved as noted above. Esophageal intubation was performed without difficulty, and the endoscope was advanced through the esophagus, stomach and duodenum. A slow withdrawal was then performed with retroflexion in the stomach for careful inspection of the incisura angularis, fundus and cardia. The scope was then returned to a neutral position and withdrawn through the esophagus. The patient tolerated the procedure well and without complication. BIOPSIES: Obtained of the gastric antrum/body/fundus PHOTOGRAPHS: Obtained FINDINGS: Hypopharynx and Larynx: Normal Esohagoscopy Upper and middle thirds: Normal Lower third normal Esophogastric junctions: No evidence of esophagitis or Bell's or stricturing, no dilation done Gastroscopy: Cardia/Fundus: There was a mild to moderate amount of retained food and liquid here in the fundus, there appear to be some stasis gastritis which was biopsied to make sure this was not underlying adenocarcinoma, the folds were slightly thickened. Body: Evidence of mild patchy gastritis Antrum and pylorus evidence of mild patchy gastritis with prepyloric erythema and probable intestinal metaplasia, biopsies obtained here Duodenoscopy: Bulb normal Second and third portions: Normal IMPRESSION: Evidence of gastroparesis in the stomach with retained food in the fundus. Mild stasis gastritis with fold thickening and erythema noted in the fundus greater than antrum, biopsies pending to rule out gastritis and adenocarcinoma. Prepyloric erythema and probable intestinal metaplasia changes also biopsied. Normal-appearing esophagus and duodenum RECOMMENDATIONS: Follow up for biopsy results in 1-2 weeks by phone [phone] Continue anti-gastroesophageal reflux measures (avoid carbonated and acidic beverages, avoid eating within 2 hours of bedtime, avoid tight fitting clothing , and elevate the front bed posts 6 inches prior to sleeping. Start the patient on Reglan 5 mg elixir q. before meals and nightly to help out with the underlying gastroparesis Continue Protonix 40 mg at least once daily Migeu Sotelo MD COPY TO: Dr. Jm Reza MD, Dr. Keenan Cespedes MD Anesthesia: [facility] Surgeon / Physician: Migue Sotelo Estimated blood loss: minimal Specimens: other (cecum/ascending/descending/sigmoid) Condition: stable Disposition: post procedure unit (G.I. Suite) Results - Labs CBC & BMP: 06/27/16 03:33 06/27/16 03:33 Discharge Plan - Discharge Medications No Action Simvastatin [Zocor] 20 mg PO QPM Pantoprazole Tab [Protonix Tab] 40 mg PO DAILY Zolpidem Tartrate [Ambien] 10 mg PO BEDTIME Tamsulosin [Flomax] 0.4 mg PO QPM hydroCHLOROthiazide [Hydrochlorothiazide] 12.5 mg PO DAILY Ferrous Sulfate [Ferrous Sulfate Cap] 325 mg PO DAILY HYDROcodone/ACETAMIN 5-325 [[place] 5-325] 1 tablet PO Q4H PRN PRN Reason: Pain Melatonin 3 mg PO BEDTIME Aspirin EC Tab 81 mg PO DAILY Metoprolol Succinate 50 mg PO DAILY Ascorbic Acid 1,000 mg PO BID Albuterol Inhaler [Proventil Inhaler] 1 puff INH BID PRN PRN Reason: Shortness Of Breath/Wheezing Phenazopyridine HCl [Azo Urinary Pain Relief] 97.5 mg PO DAILY PRN PRN Reason: UTI Sildenafil Citrate [Viagra] 100 mg PO DAILY PRN PRN Reason: Erectile Dysfunction - Follow Up or Referral - Forms/Instructions
--- NOTE | 2016-06-29 09:16 | Anesthesia Post-Op ---
Anesthesia Post OP - Post Ansesthetic Evaluation Patient seen in post op: Yes Resp: within normal limits CV: within normal limits Mental: within normal limits Temp: within normal limits [id number]: within normal limits Nausea and Vomiting: within normal limits Pain: within normal limits
--- NOTE | 2016-06-29 10:59 | XRay Report ---
Exam: XR KUB Date: 06/29/2016 Indication: Adenocarcinoma small bowel scalp Comparison: None Technical: Supine image. Findings: Gaseous distention present within the large and small bowel present. Previous surgical changes with mesh clips present over the lower abdomen and pelvis extending towards the left. Prostate seed implants are present. The liver spleen and renal shadows are mostly obscured. Lateral marginal osteophytes are present. No obvious pneumoperitoneum Impression: 1. Previous prostate seed implants 2. Previous abdominal mesh inguinal surgery 3. Abdominal ileus pattern present with some dilated large and small bowel loops present. 4. Degenerative spondylosis changes thoracolumbar spine. PROCEDURE INTERPRETED AT [facility] DEPARTMENT OF RADIOLOGY Final Report Signed by: Dr. Abdi Landaverde
[2016-06-29] MEDS: ASPIRIN EC 81 MG TABLET PO SCH (11:47)
[2016-06-29] MEDS: FERROUS SULFATE 325 MG TABLET PO SCH (11:47)
[2016-06-29] MEDS: POLYETHYLENE GLYCOL POWDER 17 GM PACK PO SCH (11:47)
[2016-06-29] MEDS: CIPROFLOXACIN 750 MG TABLET PO SCH ×2 (11:47→20:21)
[2016-06-29] MEDS: ASCORBIC ACID 500 MG TABLET PO SCH ×2 (11:48→20:21)
[2016-06-29] MEDS: ACETYLCYSTEINE 600 MG CAPSULE PO SCH ×2 (11:48→20:21)
[2016-06-29] MEDS: METOCLOPRAMIDE 10 MG/10 ML UDCUP PO SCH ×3 (11:50→20:21)
[2016-06-29] MEDS: DEXAMETHASONE 4 MG TABLET PO SCH ×2 (11:50→20:21)
[2016-06-29] MEDS: METOPROLOL SUCCINATE XL 100 MG TABLET PO SCH (11:50)
[2016-06-29] MEDS ORDERED: PROPOFOL 200 MG/20 ML VIAL IV ONE (12:00)
[2016-06-29] MEDS ORDERED: LIDOCAINE 2% 5 ML VIAL ONE (12:00)
--- NOTE | 2016-06-29 15:11 | Hospitalist Progress Note ---
Assessment and Plan (1) Mass of multiple sites of liver Status: Deleted Assessment and plan: The patient has CEA consistent with metastatic adenocarcinoma. The patient's prostate cancer appears to be controlled at this time. The patient will have upper GI fluoroscopy tomorrow. Current Visit: Yes Hospitalist: Subjective Interval history: The patient had upper GI endoscopy this morning no tumor was found. Upper GI fluoroscopy was attempted but there is too much air in the got for now. I coordinated care with Dr. Hill. We are going to try again tomorrow to obtain the upper GI fluoroscopy. Exam - Constitutional Vitals: Period Temp Pulse Resp BP Sys/Marte Pulse Ox Last 24 Hr 96.1 F-98.1 F 50-83 14-22 121-181/68-93 94-100 General appearance: no acute distress - Respiratory Respiratory exam: Present: clear to auscultation bilaterally - Cardiovascular Cardiovascular exam: Present: regular rate and rhythm Results - Labs CBC & BMP: 06/27/16 03:33 06/27/16 03:33 Specialty Discharge - Follow Up or Referrals Follow up with: Jm Reza MD [Physician] - 07/06/16 10:00 am
[2016-06-29] MEDS: PANTOPRAZOLE 40 MG TABLET PO SCH (17:21)
[2016-06-29] MEDS: TAMSULOSIN 0.4 MG CAPSULE PO SCH (18:38)
[2016-06-29] MEDS: SIMVASTATIN 20 MG TABLET PO SCH (18:38)
[2016-06-29] MEDS: MELATONIN 3 MG TABLET PO SCH (20:21)
[2016-06-29] MEDS: ACETAMINOPHEN 325 MG TABLET PO PRN (20:29)
[2016-06-30] MEDS: ACETAMINOPHEN 325 MG TABLET PO PRN (02:37)
[2016-06-30] MEDS: METOCLOPRAMIDE 10 MG/10 ML UDCUP PO SCH ×2 (07:36→12:01)
--- NOTE | 2016-06-30 07:40 | Urology Progress Note ---
Urology - PN: Subj Interval history: Cook catheter is out and patient is back on intermittent catheterizations biopsies done at cystoscopy are pending Exam - Constitutional Vitals: Period Temp Pulse Resp BP Sys/Marte Pulse Ox Last 24 Hr 96.9 F-99.4 F 56-81 14-22 106-161/58-78 92-99 Results - Labs CBC & BMP: 06/27/16 03:33 06/27/16 03:33 Specialty Discharge - Follow Up or Referrals Follow up with: Jm Reza MD [Physician] - 07/06/16 10:00 am
--- NOTE | 2016-06-30 10:16 | Fluoroscopy Report ---
Exam: FL small bowel follow through Date: 06/30/2016 Indication: Adenocarcinoma unknown primary with negative EGD and colonoscopy Comparison: None Findings: Windscreen Fitter image was obtained. Prostate seed implants are present with surgical changes in the left inguinal region and right inguinal region that suggest previous mesh surgery. Contrast was demonstrated placed into the small bowel. With images obtained for approximately 45 minutes. The terminal ileum is unremarkable. The exam reveals no obvious segmentation or flocculation of the barium column. Supine and prone imaging and spot imaging obtained of the small intestine obtained. A total of 30 seconds fluoroscopy time was utilized. Impression: 1. No obvious mass or obstruction present. 2. Multiple prostate seed implants present 3. Previous abdominal mesh surgery in the inguinal regions bilaterally PROCEDURE INTERPRETED AT [facility] DEPARTMENT OF RADIOLOGY Final Report Signed by: Dr. Abdi Landaverde
[2016-06-30] MEDS: SODIUM CHLORIDE 0.45% 1,000 ML IV SCH (11:37)
[2016-06-30] MEDS: oxyCODONE IR 5 MG TABLET PO PRN (11:58)
[2016-06-30] MEDS: OXYBUTYNIN 5 MG TABLET PO PRN (11:58)
[2016-06-30] MEDS: ACETYLCYSTEINE 600 MG CAPSULE PO SCH (12:00)
[2016-06-30] MEDS: DEXAMETHASONE 4 MG TABLET PO SCH (12:00)
[2016-06-30] MEDS: CIPROFLOXACIN 750 MG TABLET PO SCH (12:00)
[2016-06-30] MEDS: ASCORBIC ACID 500 MG TABLET PO SCH (12:00)
[2016-06-30] MEDS: METOPROLOL SUCCINATE XL 100 MG TABLET PO SCH (12:00)
[2016-06-30] MEDS: POLYETHYLENE GLYCOL POWDER 17 GM PACK PO SCH (12:00)
[2016-06-30] MEDS: ASPIRIN EC 81 MG TABLET PO SCH (12:00)
[2016-06-30] MEDS: FERROUS SULFATE 325 MG TABLET PO SCH (12:00)
--- NOTE | 2016-06-30 13:34 | Gastrointestinal Progress Note ---
Assessment and Plan (1) Mass of multiple sites of liver Status: Deleted Assessment and plan: The patient likely has metastatic prostate cancer to the liver, a previous triple phase [facility] seem to show what look like hemangiomas in the past. We should be able to distinguish between these 2 potential lesions of the liver with a tagged red blood cell scan which showed showing accumulation of RBC contrast in hemangiomas if these are identified. I suspect this patient may have a discrete lesion or potentially several but that the majority of the "innumerable lesions" are likely metastatic cancer of some type. I think will be helpful to have a biopsy demonstrating that they were consistent with prostate cancer, as opposed to a secondary metastasis from another site versus primary hepatocellular carcinoma. If the tagged red blood cell scan is negative for evidence of hemangiomas with probably be safe in obtaining a liver biopsy of 1 of the larger lesions to make the diagnosis of metastatic cancer. 06/22/16--the patient did have a hemangioma study done yesterday which showed no convincing evidence of hemangiomas in the liver. CT scan demonstrated numerous hypoechoic lesions and so possibly random biopsy may show if there was cancer in the liver however I do not believe this will be the case. Patient's liver function tests are normal and if there was diffuse involvement of the liver the alkaline phosphatase and bilirubin likely would be higher. As well as the transaminases. These were all normal. The echotexture may be increased for other reasons such as fatty infiltration. We will try and obtain a fine-needle biopsy of the largest lesion which is 2.3 cm in size through interventional radiology. This could be done with either CT scan or ultrasound. 06/23/16--Awaiting pathology from the liver biopsy specimen taken today. This should be back shortly. LFTs remain entirely normal. 06/24/16--The pathology is still pending at this time. The patient is likely going to be discharged in the next 48 hours. I can certainly follow this up as an outpatient once the biopsy results are available. 06/27/16--This patient was put on the colonoscopy list for colonoscopy this morning due to the pathology from the liver demonstrating possible adenocarcinoma from colon primary. Patient previously undergone colonoscopy back in 2014 so this seemed unlikely. Repeat colonoscopy demonstrated the following: No gross evidence of colon cancer, old post polypectomy site noted in the sigmoid colon which was biopsied as well as lipomatous area appearing in the cecum. We may need to label this liver lesion as a adenocarcinoma of unknown primary. 06/28/16--The patient had previously had upper endoscopy done 2010 which did not show gross evidence of cancer, dilation done at that time because of dysphagia. The patient does have adenocarcinoma with a high CEA level in the liver. The colonoscopy done yesterday on gross evidence of a primary. was negative for biopsies taken of the 2 lesions seen (lipoma and scarring in the sigmoid) proved to be benign as well. Currently the patient is doing with Dr. Thurston undergoing cystoscopy. On the chance of this is negative for a source for the metastases I will go ahead and arrange for upper endoscopy to occur tomorrow. 06/29/16--This proved to be adenocarcinoma of unknown primary. The cystoscopy showed some ragged tissue in the urethral area consistent with old cancer possibly treated with the patient's PSA level being as low as it is this seems unlikely as a source, but some post-radiation scarring noted in the prostatic portion of the urethra. We did upper endoscopy today in order to look for evidence of upper adenocarcinoma in the esophagus/stomach/duodenum. Stomach did appear mildly irritated with some thickened folds and I biopsied this but is likely stasis gastritis or Helicobacter pylori. There was some gastroparesis present. Biopsies are pending at this time there was no classic mass-effect as usually seen with cancer. We might consider adding a small bowel follow-through in order to view the rest of the small bowel. I will go ahead and order this. 06/30/16--The small bowel follow-through proved to be negative, for mass that might be associated with adenocarcinoma. The patient is due to leave today, will call him to follow-up with results of the pathology from the upper GI tract. He is due to leave very shortly. 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 The colon is essentially ruled out as a site of potential cancer at this point. 06/22/16--repeat colonoscopy in 5 years from last i.e. January 2020, should the patient be well enough to undergo this procedure. 06/23/16--repeat colonoscopy in January 2020 06/24/16--Repeat colonoscopy as noted above. 06/27/16--Repeat colonoscopy now in June 2021 Current Visit: Yes (3) History of esophageal stricture Status: Acute Assessment and plan: The patient was having some nausea and vomiting earlier secondary to abdominal pain caused by the hydronephrosis but now feels great deal better. Acid blockade would likely be helpful over time. His nausea continues to get better after catheterization. No need for dilation in the short-term as he is really not getting food stuck at this point. EGD was last done approximately [address] Meng. Suggest daily Protonix. 06/22/16--No further upper endoscopy desired. The patient is not having any dysphagia at this time and does not feel any acid reflux. Continue daily Protonix. 06/23/16--No further problems. 06/24/16--no further problems 06/27/16-- No further problems, in fact the patient can be discharged from my standpoint 06/28/16--we will arrange for repeat upper endoscopy tomorrow but will likely not require redilation. Continue Protonix for the present time. 06/29/16--No further problems with dysphagia, we did not redilated the patient today. 06/30/16--No redilation done on 06/29/16 Current Visit: Yes (4) Abnormal weight loss Status: Acute Assessment and plan: Continue to monitor this. This is likely secondary to his metastatic prostate cancer with underlying disability, and multiple medical problems. 06/22/16--Continue to monitor the weight is a patient is eating better now that his bladder is emptying better. 06/23/16--Appetite continues to be a problem with this patient. We may need to consider Remeron versus Marinol in the near future. 06/24/16--we will continue to use Protonix. This patient may respond to Remeron or Marinol us if needed in the future if he does not respond to the Protonix in the next 2 weeks. 06/27/16--The patient needs treatment of his metastatic adenocarcinoma. This may help with his abnormal weight loss. 06/28/16--We continue with the workup at this time. 06/29/16--Patient did have some gastroparesis noted on today's EGD, we will start the patient on low-dose of Reglan elixir to see if this helps. Small bowel follow-through is pending. 06/30/16--I have written for this patient to get pantoprazole 40 mg prior to suppertime each night in addition to the MiraLAX 17 g packets 1 p.o. twice daily in 8 ounces of liquid. These are in the front of the chart. The patient be discharged at this time in my opinion. He can contact my office if he felt like the Reglan was of any major help, will call this out to a pharmacy of his choice, if desired. Current Visit: Yes Gastroenterology - PN: Subj Interval history: The patient is awaiting discharge at this time, his nurse states that he is due to get some catheters to take home with him before he can leave the hospital. His questions were answered but my understanding is that he is awaiting PET scan to be done as an outpatient to try and find a primary at this point. The results of the small bowel follow-through were explained to the patient. The primary source of the carcinoma metastatic to the liver remains cryptogenic at this time. Exam (Progress Note) - Constitutional Vitals: Period Temp Pulse Resp BP Sys/Marte Pulse Ox Last 24 Hr 98.2 F-99.4 F 56-81 17-20 106-161/58-76 92-98 General appearance: no acute distress - Head Head exam: Present: normocephalic - Eye Eye exam: Present: EOMI Pupils: Present: DARIAN - Neck Neck exam: Present: normal inspection - Respiratory Respiratory exam: Present: clear to auscultation bilaterally. Absent: rhonchi, stridor, wheezes - Cardiovascular Cardiovascular exam: Present: regular rate and rhythm - GI/Abdominal GI/Abdominal exam: Present: normal bowel sounds, tenderness (Very mild periumbilical tenderness), soft. Absent: distended, guarding, rebound - Neurological Exam Neurological exam: Present: alert - Psychiatric Psychiatric exam: Present: normal affect, normal mood - Skin Skin exam: Present: warm Results - Labs CBC & BMP: 06/27/16 03:33 06/27/16 03:33 Specialty Discharge - Follow Up or Referrals Follow up with: Jm Reza MD [Physician] - 07/13/16 9:45 am
[2016-06-30 13:41] VITALS: BP 152/70
--- NOTE | 2016-07-08 18:15 | Pathology Report from [facility] ---
[facility] ACCESSION # : [id number] PATIENT NAME : Barbara Figueredo ORDERING DR : BARBARA CALLES MD CLINICAL HX: Bilateral hydronephrosis - History prostate cancer POST-OP DX: Same SPECIMEN INFO: Prostatic tissue area GROSS DESCRIPTION: The specimen is received in formalin labeled with the patients name BARBARA FIGUEREDO and consists of an aggregate of red-teresa tissue measuring 2.0 x 1.2 cm. Submitted in one cassette. DIAGNOSIS FOR BARBARA FIGUEREDO: PROSTATE AREA BIOPSY: Adenocarcinoma, primary undetermined; referred to [facility].The following is a consultation report from Dr. Brian Guillaume at [facility] Pathology, [place], [place]:PROSTATE BIOPSY: Invasive poorly-differentiated mucinous adenocarcinoma. No definite prostate tissue seen. See note.NOTE: Although stains from the outside were weakly positive for PSA, stains performed at [facility] were negative for PSA, P501S, and NKX3.1 which along with the morphology rules out prostate adenocarcinoma. GATA3 is negativeAlthough CDX2 is positive (outside stain), the differential diagnosis still includes a primary adenocarcinoma of the prostatic urethra, bladder or gastrointestinal tract. Clinical correlation is recommended. COLLECTED DATE: 06/28/2016 [facility] REPORT DATE: 07/08/2016 ELECTRONICALLY SIGNED BY: Omaira Ford M.D. 07/08/2016 - 12:04:49 ANNE
--- NOTE | 2016-07-08 18:16 | Pathology Report from [facility] ---
[facility] ACCESSION # : [id number] PATIENT NAME : Barbara Figueredo ORDERING DR : Migue Sotelo MD CLINICAL HX: Probable CA w/liver mets POST-OP DX: Same SPECIMEN INFO: #1 SHRUTHI #2 Fundus GROSS DESCRIPTION: Received in formalin labeled:#1 BARBARA FIGUEREDO & #1 are fragments of pink teresa mucosal tissue measuring 0.5 x 0.7 cm submitted in cassette #1.#2 BARBARA FIGUEREDO & #2 are four mucosal teresa tissue fragments measuring collectively 0.8 x 0.5 cm submitted in cassette #2. DIAGNOSIS FOR BARBARA FIGUEREDO: #1 SHRUTHI BIOPSIES: Possible atypia; referred to [facility].#2 FUNDUS BIOPSY: Chronic superficial gastritis. H. pylori not seen on special stain.The following is a consultation report from Dr. Brian Guillaume at [facility] Pathology, [place], MD:SHRUTHI, FUNDUS BIOPSIES: Unremarkable gastric mucosa. COLLECTED DATE: 06/29/2016 [facility] REPORT DATE: 07/08/2016 ELECTRONICALLY SIGNED BY: Omaira Ford M.D. 07/08/2016 - 11:54:41 [facility]
== END 2016-06-30 14:35 | disposition home or self-care (01) | DRG 436 ==
LOC: N.ED 19:35 → N.EDINP 06-20 00:25 → SUATTDRO 06-20 00:25 → N.EDINP 06-20 01:03 → N.4E 06-20 01:43
PROVIDERS: ADMIT Internal Medicine; ATTEND Internal Medicine
PROC: COLONBX (2016-06-27 07:35)

== ENCOUNTER 2016-09-11 13:04 | Inpatient (IN) ==
[2016-09-11] MEDS ORDERED: SODIUM CHLORIDE 0.9% 2,000 ML IV STA (13:40)
[2016-09-11] MEDS ORDERED: SUCCINYLCHOLINE 200 MG/10 ML VIAL ONE (13:44)
[2016-09-11] MEDS ORDERED: VECURONIUM 10 MG VIAL IV ONE (13:44)
[2016-09-11] MEDS ORDERED: ETOMIDATE 20 MG/10 ML VIAL IV ONE (13:44)
--- NOTE | 2016-09-11 13:45 | Emergency Department Note ---
IAlexander Brittany, am scribing for, and in the presence of, Bridget Taylor DO 13: 40. IBrandon Debra, DO, personally performed the services described in this documentation, ascribed by Riri Munoz in my presence, and it is both accurate and complete 345 . Arrival - Arrival Chief Complaint: Altered Mental Status ED Nursing Triage Note: pt has had alt loc and resp problems since last night. pt came from home and is a full code per ems. pt is on cpap Mode of Arrival: Stretcher Limitations: Altered Mental Status Source: EMS - History of Present Illness HPI Narrative: This is a 66 y/o black male,who presents to the ED in respiratory distress. Per EMS, pt started to have a decreased LOC last night and then became SOB. Pt is a full code but his family states he is on home hospice. Hx is limited secondary to pt's current mental status and being in respiratory distress. Pt has a PMHx of TIA, HTN, renal failure, recurring UTIs, prostate cancer, and anemia. Pt has had a colonoscopy and prostate surgery. Pt has a family medical Hx of cancer. Onset (ago): hour(s) (Started last night) Consistency: constant Severity: moderate, severe Allergies/Adverse Reactions: Allergies Allergy/AdvReac Type Severity Reaction Status Date / Time No Known Allergies Allergy Verified 07/24/16 16:39 Home Medications: Home Medications Medication Instructions Recorded Confirmed Type Ferrous Sulfate [Ferrous Sulfate 325 mg PO DAILY 01/23/15 07/24/16 History Cap] Simvastatin [Zocor] 20 mg PO QPM 01/23/15 07/24/16 History Tamsulosin [Flomax] 0.4 mg PO QPM 01/23/15 07/24/16 History Zolpidem Tartrate [Ambien] 10 mg PO BEDTIME 01/23/15 07/24/16 History hydroCHLOROthiazide 12.5 mg PO DAILY 01/23/15 07/24/16 History [Hydrochlorothiazide] Albuterol Inhaler [Proventil 1 puff INH BID PRN 06/19/16 07/24/16 History Inhaler] Ascorbic Acid 1,000 mg PO BID 06/19/16 07/24/16 History Aspirin EC Tab 81 mg PO DAILY 06/19/16 07/24/16 History HYDROcodone/ACETAMIN 5-325 [[place] 1 tablet PO Q4H PRN 06/19/16 07/24/16 History 5-325] Melatonin 3 mg PO BEDTIME 06/19/16 07/24/16 History Metoprolol Succinate 50 mg PO DAILY 06/19/16 07/24/16 History Phenazopyridine HCl [Azo Urinary 97.5 mg PO DAILY PRN 06/19/16 07/24/16 History Pain Relief] Metoclopramide Liquid [Reglan 5 mg PO ACHS #300 06/30/16 07/24/16 Rx Liquid] Oxybutynin [Ditropan] 5 mg PO TID PRN #90 tablet 06/30/16 07/24/16 Rx Pantoprazole Tab [Protonix Tab] 40 mg PO DAILY #60 06/30/16 07/24/16 Rx Cefdinir 300 mg PO BID #20 capsule 07/29/16 Rx Review of System - Review of System 12 point system: reviewed and no additional remarkable complaints except as stated - Review of System Review of Systems: AMS Respiratory: Present: respiratory distress Medical,Surgical,& Family Hx - Medical History Cardio: History of: Hypertension Neurology: History of: TIA No history of: Seizures Renal: History of: Renal Failure Genitourinary: History of: Recurring Urinary Tract Infections, Problems ( self catheterizes due to inability to void related to prostate CA) Gastrointestinal: History of: GI Problems (anemia) Other: History of: Cancer (prostate) - Surgical History Abdominal Surgeries: Surgical HX of: Colonoscopy Reproductive Surgeries: Surgical HX of;: Prostate Surgery - Family History Family History: Reports;: Family Cancer - Social History Smoking Status: Never smoker Frequency of Alcohol Use: None Type of Drug Use: None Exam Vital Signs: Vital Signs Temperature 97.0 F L 09/11/16 13:22 Pulse Rate 76 09/11/16 14:23 Respiratory Rate 12 09/11/16 14:23 Blood Pressure 120/38 09/11/16 14:23 O2 Sat by Pulse Oximetry 99 09/11/16 14:23 Course Course Narrative: pt went into pulseless vtach and atls protocol was initiated. (see code sheet) . pt was intubated prior to code. will admit to hospitalist. Procedures - Intubation Time out performed: Yes sedative: Etomidate Mg Given: 20 paralytic: Succinylcholine Mg Given: 100 Laryngoscope: Liz ET Tube Size: 7.5 Tube Secured Depth (cm): 23 Tube Secured Location: lips Tube Placement Confirmation: visualized tube passing through cords, equal breath sounds bilaterally Intubation Complications: none Results - Labs CBC & BMP: 09/11/16 13:35 09/11/16 13:35 Lab Results: I have reviewed the patients labs Labs: Laboratory Tests 09/11/16 09/11/16 09/11/16 13:35 13:35 13:35 WBC 57.6 H* RBC 3.34 L Hgb 10.4 L Hct 34.4 L MCV 103.0 H MCH 31 MCHC 30.2 L RDW 20.7 H Plt Count 159 MPV 12.2 H Neut % (Auto) 52.4 Lymph % (Auto) 16.1 L [place] % (Auto) 8.5 Eos % (Auto) 0.1 Baso % (Auto) 0.1 Neut # (Auto) 30.1 H Lymph # (Auto) 9.3 H [place] # (Auto) 4.9 H Eos # (Auto) 0.1 Baso # (Auto) 0.1 Total Counted Pending Immature Gran % 22.8 Nucleated RBC % 1.3 Immature Gran # 13.13 Nucleated RBCs # 0.75 Immature Plt Fraction 0.0 INR PT Patient/Control Mix Circ Anticoag PTT ABG pH ABG pCO2 ABG pO2 ABG HCO3 ABG Total CO2 ABG O2 Saturation ABG Base Excess Ammonia 253 H Urine Color Dark yellow Urine Appearance Cloudy Urine pH 8.0 Ur Specific [place] 1.010 Urine Protein 100 Urine Glucose (UA) Negative Urine Ketones Negative Urine Blood Moderate Urine Nitrate Negative Urine Bilirubin Negative Urine Urobilinogen 2.0 H Urine Leukocytes Large H Urine WBC 279 Urine WBC Clumps Many Urine Bacteria Moderate Ur Culture Indicated? Results to follow 09/11/16 09/11/16 13:35 13:42 WBC RBC Hgb Hct MCV MCH MCHC RDW Plt Count MPV Neut % (Auto) Lymph % (Auto) [place] % (Auto) Eos % (Auto) Baso % (Auto) Neut # (Auto) Lymph # (Auto) [place] # (Auto) Eos # (Auto) Baso # (Auto) Total Counted Immature Gran % Nucleated RBC % Immature Gran # Nucleated RBCs # Immature Plt Fraction INR 2.0 PT Patient/Control Mix 22.3 D Circ Anticoag PTT 53.2 H ABG pH 6.836 L* ABG pCO2 26.6 L ABG pO2 576.0 H ABG HCO3 5.4 L ABG Total CO2 4.7 L ABG O2 Saturation 98.8 ABG Base Excess -28.6 L Ammonia Urine Color Urine Appearance Urine pH Ur Specific [place] Urine Protein Urine Glucose (UA) Urine Ketones Urine Blood Urine Nitrate Urine Bilirubin Urine Urobilinogen Urine Leukocytes Urine WBC Urine WBC Clumps Urine Bacteria Ur Culture Indicated? - EKG EKG results: interpreted by JOSÉ ANTONIOD EKG shows: tachycardia, sinus rhythm - Diagnostic Findings Procedure: Chest x-ray: report reviewed by me (Nothing acute. ) Critical Care Time Critical Care Time: Yes Disposition Clinical Impression: Altered mental status, Sepsis Case discussed with: patient, patient's family Disposition: Still a Patient Condition: Stable Time of Disposition: 14:00
[2016-09-11 13:49] LABS: Basophils # 0.1 10*3/uL (0.0-0.2); Basophils % 0.1 % (0.0-0.8); Eosinophils # 0.1 10*3/uL (0.0-0.87); Eosinophils % 0.1 % (0.00-10.9); Hematocrit 34.4 VOL% (42.0-52.0); Hemoglobin 10.4 GM/DL (14.0-18.0); Immature Granulocytes % 22.8 %; Immature Granulocytes Absolute 13.13 #; Lymphocytes # 9.3 10*3/uL (1.4-4.0); Lymphocytes % 16.1 % (21.2-54.2); Mean Corpuscular HGB Conc 30.2 GM/DL (32-36); Mean Corpuscular Hemoglobin 31 PG (27-34); Mean Platelet Volume 12.2 FL (9.6-12.0); Monocytes # 4.9 10*3/uL (0.11-0.8); Monocytes % 8.5 % (1.7-12.7); NRBC # 0.75 10*3/uL; Neutrophils # 30.1 10*3/uL (1.4-7.4); Neutrophils % 52.4 % (38.7-73.9); Platelet Count 159 T/CUMM (130-400); Red Blood Count 3.34 MC/CUMM (3.8-5.5); Red Cell Distribution Width 20.7 % (9.3-17.3)
[2016-09-11 13:50] LABS: ABG Base Excess -28.6 MMOL/L (-2.5-2.5); ABG HCO3 5.4 MMOL/L (20-26); ABG Oxygen Saturation 98.8 % (95-100); ABG PCO2 26.6 MM HG (35-48); ABG TCO2 4.7 MMOL/L (23-27)
[2016-09-11 13:52] LABS: White Blood Count 57.6 T/CUMM (4-12)
[2016-09-11 13:57] LABS: Apearance,Urine CLOUDY (Clear); Bacteria,Urine Moderate /HPF (Few); Bilirubin,Urine Negative (Negative); Blood, Urine Moderate mg/dL (Negative); Glucose,Urine (UA) Negative (Negative); Ketones,Urine Negative (Negative); Nitrite,Urine Negative (Negative); Protein,Urine 100 MG/DL; Urine Color Dark yellow (Yellow); WBC,Urine 279 /HPF (0-6)
[2016-09-11 13:58] LABS: ABG PH 6.836 (7.35-7.45)
[2016-09-11] MEDS ORDERED: EPINEPHrine 1 MG/10 ML SYRINGE ONE (13:58)
[2016-09-11] MEDS ORDERED: SODIUM BICARBONATE 50 MEQ/50 ML SYRINGE IV ONE ×2 (13:58→15:00)
[2016-09-11] MEDS ORDERED: CALCIUM CHLORIDE 1,000 MG/10 ML SYRINGE IV ONE ×2 (13:58→14:02)
[2016-09-11 14:01] LABS: PT Patient Result 22.3 SECS; Partial Thromboplastin Time 53.2 SECS (0-40)
[2016-09-11 14:08] LABS: Albumin 2.4 G/DL (3.4-5.0); Bilirubin,Total 4.9 MG/DL (0.2-1.0); Calcium 9.1 MG/DL (8.5-10.1); Magnesium 4.5 MG/DL (1.8-2.4); Osmolality,Calculated 315.1 MOS/KG (273-304); Total Protein 7.1 G/DL (6.4-8.3)
[2016-09-11 14:10] LABS: Potassium 7.6 MMOL/L (3.5-5.1); Troponin I Only 0.093 NG/ML (0.00-0.045)
--- NOTE | 2016-09-11 14:14 | XRay Report ---
XR chest 1V portable Indication: Status post intubation. Comparison: Chest x-ray 10/11/2012. Technique: Portable AP chest was performed. Findings: Heart size is normal. Endotracheal tube terminates above the shabnam at the level of the aortic knob. Pulmonary vasculature appears within normal limits. No significant abnormality of the mediastinal contours demonstrated. Lungs are clear. Bones and soft tissues demonstrate no significant abnormalities. Impression: 1. No evidence of acute pathology. 09/11/2016 1:49 PM PROCEDURE INTERPRETED AT [facility] DEPARTMENT OF RADIOLOGY Final Report Signed by: Dr. Milton Crawford
[2016-09-11] MEDS ORDERED: ALBUTEROL NEB SOLN 5 MG/ML 20 ML/BOTTLE CONT NEB STA (14:15)
[2016-09-11 14:17] LABS: Band Neutrophils 4 % (0-10); Lymphocytes 19 % (20-55); Metamyelocytes 8 %; Myelocytes 7 %; Plasma Cells 1; Promyelocytes 2 %; Segmented Neutrophils 54 % (50-85); Total Cells Counted 99
[2016-09-11 14:18] LABS: Poikilocytosis 1+
[2016-09-11 14:19] LABS: Burr Cells Few; Platelet Estimate Adequate; Polychromasia Few; Schistocytes Few
[2016-09-11 14:22] LABS: Lactic Acid 17.3 MMOL/L (0.4-2.0)
[2016-09-11] MEDS ORDERED: MEROPENEM 1,000 MG in SODIUM CHLORIDE 0.9% 100 ML IV STA (14:32)
[2016-09-11] MEDS ORDERED: INSULIN REGULAR 100 UNIT/ML IV STA (14:32)
[2016-09-11] MEDS ORDERED: VANCOMYCIN INJ 1,000 MG in SODIUM CHLORIDE 0.9% 250 ML IV STA (14:32)
[2016-09-11] MEDS ORDERED: DEXTROSE 50% 25 GM/50 ML VIAL IV STA (14:33)
[2016-09-11] MEDS ORDERED: DEXTROSE 50% 25 GM/50 ML SYRINGE IV ONE (14:37)
[2016-09-11] MEDS ORDERED: MEROPENEM 1,000 MG VIAL IV ONE (14:37)
[2016-09-11] MEDS ORDERED: VANCOMYCIN 1,000 MG VIAL ONE (14:37)
[2016-09-11] MEDS ORDERED: INSULIN REGULAR 100 UNIT/ML ONE (14:38)
--- NOTE | 2016-09-11 14:47 | Hospitalist History & Physical ---
Assessment and Plan (1) Urinary tract infection Status: Acute Current Visit: No (2) Septic shock Status: Acute Assessment and plan: The patient was grossly hypotensive at the time of ED presentation with a blood pressure noted at 55/39, white blood cell count was noted at 57.6, BUN was noted at 135, creatinine 3.80, and lactic acid was noted at 17.3. We will initiate the sepsis bundle. We will provide supportive measures. Current Visit: Yes (3) Metabolic acidosis Status: Acute Current Visit: Yes History of Present Illness Chief complaint: Altered mental status History of present illness: This is a poor and unfortunate 66-year-old male that presented to the ED at [facility] this afternoon for the evaluation of altered mental status. The patient has a very long and complex medical history significant for transient ischemic attack, hypertension, renal failure, chronic urinary tract infections, prostate cancer, and anemia. Patient has surgical history significant for colonoscopy and prostate resection. At the time of ED presentation, the patient was noted to be in respiratory distress. Per EMS report, the family reported that the patient started to experience a decrease in his level of consciousness and shortness of breath on last night. As the symptoms became more severe, his family called EMS. They reported that the patient is currently on hospice however he is a full code. The patient was subsequently transported to [facility] for continuation of care. At the time of ED presentation, the patient was experiencing severe respiratory distress. Shortly after presentation, the patient was noted to be experiencing ventricular tachycardia. Cardiopulmonary resuscitation was initiated. The patient was intubated for airway protection. The patient required multiple defibrillations to regain a favorable cardiac rhythm. Labs were obtained; complete blood count reported white blood cell count at 57.6, hemoglobin 10.4, hematocrit 34.4, and platelet count at 159. Coagulation panel reported INR 2.0 , PT 22.3, PTT at 53.2. Arterial blood gas reported pH at 6.836, PCO2 26.6, HCO3 5.4. Compressive metabolic profile reported sodium 135, potassium 7.6, chloride 98, carbon dioxide 4, anion gap 40.6, BUN 135, creatinine 3.8, glucose 131, lactic acid 17.3, calcium 9.1, magnesium 4.5, total bilirubin 4.90, AST 787 , ALT 276, alkaline phosphatase 518, ammonia 253, total creatinine kinase 157, CK-MB 1.1, troponin 0 0.093, total protein 7.1, and albumin 2.4. Urinalysis was significant for a large amount of leukocytes, urine WBCs 279, many WBC clumps, and urobilinogen at 2.0. Chest x-ray reported no evidence of acute pathology. After brief discussion with both Dr. Taylor and Dr. Peres, the patient will be admitted to hospitalist services for continuation of care. A pulmonary consultation has been requested to assist in the management of the patient during the clinical encounter. The family was present at bedside. Spoke in great detail regarding the patient's current status, subsequent cardiac arrest, and prognosis. The patient's CODE STATUS was then changed from full code to DNR. Home Medications Medication Instructions Recorded Confirmed Type Simvastatin [Zocor] 20 mg PO QPM 01/23/15 09/11/16 History Tamsulosin [Flomax] 0.4 mg PO PC SUPPER 01/23/15 09/11/16 History hydroCHLOROthiazide 12.5 mg PO DAILY 01/23/15 09/11/16 History [Hydrochlorothiazide] Albuterol Inhaler [Proventil 1 puff INH BID PRN 06/19/16 09/11/16 History Inhaler] Melatonin 6 mg PO BEDTIME 06/19/16 09/11/16 History Metoprolol Succinate 50 mg PO DAILY 06/19/16 09/11/16 History Oxybutynin [Ditropan] 5 mg PO TID PRN #90 tablet 06/30/16 09/11/16 Rx Pantoprazole Tab [Protonix Tab] 40 mg PO DAILY #60 06/30/16 09/11/16 Rx Docusate Sodium Cap [Colace Cap] 100 mg PO BID 09/11/16 09/11/16 History Finasteride 5 mg PO DAILY 09/11/16 09/11/16 History Hydrocodone/Acetaminophen [[place] 1 each PO Q6H PRN 09/11/16 09/11/16 History 10-325 Tablet] Megestrol Acetate 40 mg PO BID 09/11/16 09/11/16 History Methenamine Hippurate 1 gm PO BID 09/11/16 09/11/16 History Morphine Sulfate [Morphine Sulfate 30 mg PO BID 09/11/16 09/11/16 History ER] Oxycodone HCl 10 mg PO BID PRN 09/11/16 09/11/16 History Allergies Allergy/AdvReac Type Severity Reaction Status Date / Time No Known Allergies Allergy Verified 07/24/16 16:39 Medical,Surgical,& Family Hx - Medical History Cardio: History of: Hypertension Neurology: History of: TIA No history of: Seizures Renal: History of: Renal Failure Genitourinary: History of: Recurring Urinary Tract Infections, Problems ( self catheterizes due to inability to void related to prostate CA) Gastrointestinal: History of: GI Problems (anemia) Other: History of: Cancer (prostate) - Surgical History Abdominal Surgeries: Surgical HX of: Colonoscopy Reproductive Surgeries: Surgical HX of;: Prostate Surgery - Family History Family History: Reports;: Family Cancer - Social History Smoking Status: Never smoker Frequency of Alcohol Use: None Type of Drug Use: None ROS unobtainable: due to endotracheal tube Exam - Constitutional Vitals: Period Temp Pulse Resp BP Sys/Marte Pulse Ox Last 24 Hr 97.0 F-97.0 F 76-120 12-22 55-120/38-39 77-99 General appearance: cachectic - Head Head exam: Present: normal inspection, normocephalic, atraumatic - Eye Eye exam: Present: EOMI. Absent: conjunctival injection Pupils: Present: DARIAN. Absent: normal accommodation - ENT ENT exam: Present: normal exam, normal external ear exam, normal oropharynx - Neck Neck exam: Present: normal inspection. Absent: lymphadenopathy, meningismus, thyromegaly - Respiratory Respiratory exam: Present: clear to auscultation bilaterally. Absent: rales, rhonchi, stridor, wheezes - Cardiovascular Cardiovascular exam: Present: regular rate and rhythm. Absent: carotid bruit, diastolic murmur, gallop, JVD, rubs, systolic murmur - GI/Abdominal GI/Abdominal exam: Present: normal bowel sounds, soft - Extremities Exam Extremities exam: Present: normal inspection, normal capillary refill, full ROM. Absent: edema - Back Exam Back exam: Present: normal inspection - Neurological Exam Neurological exam: Present: altered, other - Skin Skin exam: Present: normal color, warm, dry Results - Labs CBC & BMP: 09/11/16 13:35 09/11/16 13:35 Lab Results: I have reviewed the past 24 hour labs Sepsis - Sepsis Classification of Sepsis: Septic Shock Possible / Suspected infection from: Urinary Tract - Physical Exam Physical Exam: The patient was grossly hypotensive at the time of ED presentation with a blood pressure noted at 55/39, white blood cell count was noted at 57.6, BUN was noted at 135, creatinine 3.80, and lactic acid was noted at 17.3. - Physical Exam Respiratory exam: clear to auscultation bilaterally Capillary Refill: Less Than 3 Seconds Peripheral pulses: Radial (L): 1+, Radial (R): 1+, Dorsalis Pedis (L) PM: 1+, Dorsalis Pedis (R) PM: 1+, Posterior Tibialis (L): 1+, Posterior Tibialis (R): 1 + Cardiovascular exam: regular rate and rhythm Skin exam: normal color
[2016-09-11] MEDS ORDERED: SODIUM CHLORIDE 0.9% 1,650 ML IV ONE (14:48)
[2016-09-11] MEDS ORDERED: SODIUM CHLORIDE 0.9% 1,000 ML IV SCH (15:00)
[2016-09-11] MEDS ORDERED: PIPERACILLIN/TAZOBACTAM 3,375 MG in SODIUM CHLORIDE 0.9% 100 ML IV SCH (15:00)
[2016-09-11] MEDS ORDERED: PANTOPRAZOLE 40 MG VIAL IV SCH (16:14)
[2016-09-11 16:16] LABS: ABG Base Excess -17.9 MMOL/L (-2.5-2.5); ABG HCO3 10.9 MMOL/L (20-26); ABG Oxygen Saturation 99.4 % (95-100); ABG TCO2 12.7 MMOL/L (23-27)
[2016-09-11 16:18] LABS: ABG PH 7.008 (7.35-7.45)
--- NOTE | 2016-09-11 17:25 | Event Note ---
I was contacted by nursing. The family has all gathered and have determined that he would not want to go through this and they wish to withdraw all measures. Therefore we will comply with their wishes and extubate at this time. Sepsis - Sepsis Classification of Sepsis: Septic Shock - Physical Exam Respiratory exam: clear to auscultation bilaterally Capillary Refill: Greater Than 3 Seconds Peripheral pulses: Radial (L): 2+, Radial (R): 2+ Cardiovascular exam: regular rate and rhythm Skin exam: normal color
[2016-09-11] MEDS ORDERED: MORPHINE 2 MG/1 ML SYRINGE IV PRN (17:28)
--- NOTE | 2016-09-11 18:41 | Discharge Summary ---
Hospital Course - Hospital Course Hospital Course: Mr. Figueredo is a 66-year-old -[place] male with a history of metastatic adenocarcinoma of unknown primary who presented to the emergency department today because of altered mental status and respiratory distress. Upon arrival he was intubated and subsequently coded as indicated in the record. He underwent ACLS protocol. He did have her return of spontaneous circulation. Further evaluation revealed a severe metabolic acidosis and findings consistent with urinary tract infection and subsequent septic shock. He was cultured and placed on empiric IV antibiotics and was placed under the sepsis protocol where he received IV fluids. He required ventilatory support. After discussion with the family they stated that he would not want to have any further heroic measures and therefore he was made DNR. We were to continue current management however not escalate in performing CPR, ACLS, or addition of vasopressors. Later the family discussed withdrawing care and after long discussion the made that decision to do such. He was extubated and provided comfort care only. He ultimately was noted to be asystolic with no spontaneous respirations , heart tones, or palpable pulse. Patient was pronounced at 6:40 PM. Family was at the bedside. Body will be discharged to the home of family choice. Time spent in counseling family, providing end-of-life care and pronouncement was in excess of 1 hour. - Time spent with patient Time with patient DS: Greater than 30 minutes Diagnosis - Discharge Diagnosis (1) Urinary tract infection Status: Acute (2) Septic shock Status: Acute (3) Metabolic acidosis Status: Acute Discharge Plan - Discharge Data Disposition: - Discharge Medications Discontinued Simvastatin [Zocor] 20 mg PO QPM Tamsulosin [Flomax] 0.4 mg PO PC SUPPER hydroCHLOROthiazide [Hydrochlorothiazide] 12.5 mg PO DAILY Melatonin 6 mg PO BEDTIME Metoprolol Succinate 50 mg PO DAILY Albuterol Inhaler [Proventil Inhaler] 1 puff INH BID PRN PRN Reason: Shortness Of Breath/Wheezing Oxybutynin [Ditropan] 5 mg PO TID PRN #90 tablet PRN Reason: Bladder spasms Megestrol Acetate 40 mg PO BID Docusate Sodium Cap [Colace Cap] 100 mg PO BID Morphine Sulfate [Morphine Sulfate ER] 30 mg PO BID Oxycodone HCl 10 mg PO BID PRN PRN Reason: Pain Hydrocodone/Acetaminophen [[place] 10-325 Tablet] 1 each PO Q6H PRN PRN Reason: Pain Methenamine Hippurate 1 gm PO BID Pantoprazole Tab [Protonix Tab] 40 mg PO DAILY #60 Finasteride 5 mg PO DAILY - Follow Up or Referral - Forms/Instructions Exam - Constitutional Vitals: Period Temp Pulse Resp BP Sys/Marte Pulse Ox Last 24 Hr 94.7 F-97.0 F 44-120 4-22 54-120/33-54 77-100 Discharge Results Procedures and tests throughout hospitalization: Pending Orders 09/11/16 Urine Culture Routine 09/11/16 14:55 Blood Culture Stat 09/11/16 16:10 MRSA Surveillence, Inf Control Routine 09/12/16 04:00 XR chest 1V portable IN AM Arterial Blood Gas IN AM Comp Blood Count Auto Diff IN AM Comprehensive Metabolic Panel IN AM 09/13/16 04:00 Arterial Blood Gas IN AM 09/14/16 04:00 Arterial Blood Gas IN AM Labs on day of discharge: Labs from last 24 hours 09/11/16 09/11/16 09/11/16 16:00 13:42 13:35 WBC RBC Hgb Hct MCV MCH MCHC RDW Plt Count MPV Neut % (Auto) Lymph % (Auto) [place] % (Auto) Eos % (Auto) Baso % (Auto) Neut # (Auto) Lymph # (Auto) [place] # (Auto) Eos # (Auto) Baso # (Auto) Total Counted Immature Gran % Nucleated RBC % Immature Gran # Segmented Neutrophils Band Neutrophils Lymphocytes Monocytes Metamyelocytes Myelocytes Promyelocytes Nucleated RBCs # Plasma Cells Platelet Estimate Immature Plt Fraction Polychromasia Poikilocytosis Brittany Cells Schistocytes INR PT Patient/Control Mix Circ Anticoag PTT ABG pH 7.008 L* 6.836 L* ABG pCO2 51.0 H 26.6 L ABG pO2 570.0 H 576.0 H ABG HCO3 10.9 L 5.4 L ABG Total CO2 12.7 L 4.7 L ABG O2 Saturation 99.4 98.8 ABG Base Excess -17.9 L -28.6 L Sodium Potassium Chloride Carbon Dioxide Anion Gap BUN Creatinine GFR Calculation BUN/Creatinine Ratio Glucose Calculated Osmolality Lactic Acid Calcium Magnesium Total Bilirubin AST ALT Alkaline Phosphatase Ammonia Total Creatine Kinase 157 CK-MB (CK-2) 1.1 Troponin I 0.093 H Total Protein Albumin Globulin Albumin/Globulin Ratio Urine Color Urine Appearance Urine pH Ur Specific [place] Urine Protein Urine Glucose (UA) Urine Ketones Urine Blood Urine Nitrate Urine Bilirubin Urine Urobilinogen Urine Leukocytes Urine WBC Urine WBC Clumps Urine Bacteria Ur Culture Indicated? 09/11/16 09/11/16 09/11/16 13:35 13:35 13:35 WBC RBC Hgb Hct MCV MCH MCHC RDW Plt Count MPV Neut % (Auto) Lymph % (Auto) [place] % (Auto) Eos % (Auto) Baso % (Auto) Neut # (Auto) Lymph # (Auto) [place] # (Auto) Eos # (Auto) Baso # (Auto) Total Counted Immature Gran % Nucleated RBC % Immature Gran # Segmented Neutrophils Band Neutrophils Lymphocytes Monocytes Metamyelocytes Myelocytes Promyelocytes Nucleated RBCs # Plasma Cells Platelet Estimate Immature Plt Fraction Polychromasia Poikilocytosis Orange Cells Schistocytes INR 2.0 PT Patient/Control Mix 22.3 D Circ Anticoag PTT 53.2 H ABG pH ABG pCO2 ABG pO2 ABG HCO3 ABG Total CO2 ABG O2 Saturation ABG Base Excess Sodium 135 L Potassium 7.6 H* Chloride 98 Carbon Dioxide 4 L Anion Gap 40.6 H BUN 135 H Creatinine 3.80 H GFR Calculation 17 BUN/Creatinine Ratio 35.00 H Glucose 131 H Calculated Osmolality 315.1 H Lactic Acid 17.3 H Calcium 9.1 Magnesium 4.5 H Total Bilirubin 4.90 H AST 787 H ALT 276 H Alkaline Phosphatase 518 H Ammonia 253 H Total Creatine Kinase CK-MB (CK-2) Troponin I Total Protein 7.1 Albumin 2.4 L Globulin 4.7 H Albumin/Globulin Ratio 0.5 L Urine Color Dark yellow Urine Appearance Cloudy Urine pH 8.0 Ur Specific [place] 1.010 Urine Protein 100 Urine Glucose (UA) Negative Urine Ketones Negative Urine Blood Moderate Urine Nitrate Negative Urine Bilirubin Negative Urine Urobilinogen 2.0 H Urine Leukocytes Large H Urine WBC 279 Urine WBC Clumps Many Urine Bacteria Moderate Ur Culture Indicated? Results to follow 09/11/16 13:35 WBC 57.6 H* RBC 3.34 L Hgb 10.4 L Hct 34.4 L MCV 103.0 H MCH 31 MCHC 30.2 L RDW 20.7 H Plt Count 159 MPV 12.2 H Neut % (Auto) 52.4 Lymph % (Auto) 16.1 L [place] % (Auto) 8.5 Eos % (Auto) 0.1 Baso % (Auto) 0.1 Neut # (Auto) 30.1 H Lymph # (Auto) 9.3 H [place] # (Auto) 4.9 H Eos # (Auto) 0.1 Baso # (Auto) 0.1 Total Counted 99 Immature Gran % 22.8 Nucleated RBC % 1.3 Immature Gran # 13.13 Segmented Neutrophils 54 Band Neutrophils 4 Lymphocytes 19 L Monocytes 5 Metamyelocytes 8 Myelocytes 7 Promyelocytes 2 Nucleated RBCs # 0.75 Plasma Cells 1 Platelet Estimate Adequate Immature Plt Fraction 0.0 Polychromasia Few Poikilocytosis 1+ Brittany Cells Few Schistocytes Few INR PT Patient/Control Mix Circ Anticoag PTT ABG pH ABG pCO2 ABG pO2 ABG HCO3 ABG Total CO2 ABG O2 Saturation ABG Base Excess Sodium Potassium Chloride Carbon Dioxide Anion Gap BUN Creatinine GFR Calculation BUN/Creatinine Ratio Glucose Calculated Osmolality Lactic Acid Calcium Magnesium Total Bilirubin AST ALT Alkaline Phosphatase Ammonia Total Creatine Kinase CK-MB (CK-2) Troponin I Total Protein Albumin Globulin Albumin/Globulin Ratio Urine Color Urine Appearance Urine pH Ur Specific [place] Urine Protein Urine Glucose (UA) Urine Ketones Urine Blood Urine Nitrate Urine Bilirubin Urine Urobilinogen Urine Leukocytes Urine WBC Urine WBC Clumps Urine Bacteria Ur Culture Indicated? DS: Provider Date of admission: 09/11/16 14:46 Primary care physician: Linda Martinez Attending physician on admission: Linda Varela Discharging clinician: Linda Varela Expected date of discharge: 09/11/16
[2016-09-11 19:00] VITALS: BP 0/0
--- NOTE | 2016-09-12 08:26 | EKG Report ---
Stationary ECG Study [facility] ER Test Date: 09/11/2016 1:46:28 PM Pat Name: BARBARA BRITO Department: Room: 107 Gender: M Telephone Messenger: : 1950 Requested by: Bridget Taylor Order Number: [id number] Antoine MD: MILA STARK Intervals [place] Rate: 105 P: 14 ND: 120 QRS: 94 QRSD: 139 T: 32 QT: 359 QTc: 420 Interpretive Statements SINUS TACHYCARDIA RIGHT BUNDLE BRANCH BLOCK NON-SPECIFIC ST-T ABNORMALITIES Electronically Signed On 09-12-16 10:56:44 CDT by MILA STARK [email or web address]
== END 2016-09-11 18:40 | disposition expired | DRG 871 ==
LOC: EDUNIT# → N.ED 13:04 → N.EDINP 14:46 → N.ICU 15:23
PROVIDERS: ADMIT Hospitalist; ATTEND Hospitalist